=== PATIENT | female | born 1950 | race American Indian/Alaskan Native ===

== ENCOUNTER 2017-06-24 12:19 | Emergency (ER) | payer MEDICARE, MEDICAID ==
[2017-06-24 12:36] VITALS: BP 154/85
--- NOTE | 2017-06-24 14:29 | EDM.PDOC ---
ED HPI GENERAL MEDICAL PROBLEM - General Chief Complaint: Back Pain or Injury Stated Complaint: FELL, HURT RIBS ON LEFT SIDE Time Seen by Provider: 06/24/17 12:52 Source of Information: Reports: Patient, RN, RN Notes Reviewed History Limitations: Reports: No Limitations - History of Present Illness INITIAL COMMENTS - FREE TEXT/NARRATIVE: Patient presented to the ER with complaint of falling this a.m. She tripped on a rug and fell against an arm chair. She hit her head. No loss of consciousness. Pain is sharp 10. Left Back Pain Score (Numeric/FACES): 9 - Related Data Allergies Allergy/AdvReac Type Severity Reaction Status Date / Time No Known Allergies Allergy Verified 04/22/16 23:05 Home Meds: Home Meds Albuterol [Proventil HFA] 2 puff INH Q4H PRN 09/08/13 [History] Levothyroxine [Synthroid] 50 mcg PO ACBRK 09/08/13 [History] Lisinopril [Prinivil] 40 mg PO DAILY 09/08/13 [History] Verapamil [Covera-HS] 240 mg PO BEDTIME 09/08/13 [History] metFORMIN [metFORMIN XR] 1,000 mg PO BIDM PRN 09/08/13 [History] Aspirin [Low Dose Aspirin EC] 1 tab PO DAILY 03/31/14 [History] Calcium Carbonate/Vitamin D3 [Calcium 500 + Vit D 200 Tablet] 1 tab PO DAILY 09/08 [History] Diclofenac Sodium [Voltaren 1% Gel] 1 squirt TRDERM BEDTIME 03/31/14 [History] Formoterol/Mometasone [Dulera 100 MCG/5 MCG] 2 puff INH BID 03/31/14 [History] Multivit-Mins No.5/Folic Acid [Eldercaps] 1 tab PO DAILY 03/31/14 [History] traMADol [Ultram] 1 tab PO Q6H 04/15/14 [History] Past Medical History - Past Health History Medical/Surgical History: Denies Medical/Surgical History Cardiovascular History: Reports: High Cholesterol, Hypertension Respiratory History: Reports: Asthma Gastrointestinal History: Reports: GERD Genitourinary History: Reports: None 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: , Other (See Below) Other OB/BYN History: tubal Musculoskeletal History: Reports: Arthritis Neurological History: Reports: None Psychiatric History: Reports: None Endocrine/Metabolic History: Reports: Diabetes, Type II, Hypothyroidism Hematologic History: Reports: None Immunologic History: Reports: None Oncologic (Cancer) History: Reports: None Dermatologic History: Reports: None - Infectious Disease History Infectious Disease History: Reports: Mumps - Past Surgical History Head Surgeries/Procedures: Reports: None HEENT Surgical History: Reports: Tonsillectomy Female Surgical History: Reports: Tubal Ligation Musculoskeletal Surgical History: Reports: Knee Replacement Social & Family History - Family History Family Medical History: Noncontributory - Tobacco Use Smoking Status *Q: Never Smoker Second Hand Smoke Exposure: Yes - Caffeine Use Caffeine Use: Reports: Coffee, Tea - Alcohol Use Days Per Week of Alcohol Use: 0 - Recreational Drug Use Recreational Drug Use: No Drug Use in Last 12 Months: No ED ROS GENERAL - Review of Systems Review Of Systems: ROS reveals no pertinent complaints other than HPI. ED EXAM, GENERAL - Physical Exam Exam: See Below Exam Limited By: No Limitations General Appearance: Alert, WD/WN, No Apparent Distress Eye Exam: Bilateral Eye: Normal Inspection Ears: Normal External Exam, Normal Canal, Hearing Grossly Normal, Normal TMs Nose: Normal Inspection, Normal Mucosa, No Blood Throat/Mouth: Normal Inspection, Normal Lips, Normal Teeth, Normal Gums, Normal Oropharynx, Normal Voice, No Airway Compromise Head: Atraumatic, Normocephalic Neck: Normal Inspection, Supple, Non-Tender, Full Range of Motion Respiratory/Chest: Other (pain in left ribs.) Cardiovascular: Normal Peripheral Pulses, Regular Rate, Rhythm, No Edema, No Gallop, No JVD, No Murmur, No Rub GI/Abdominal: Normal Bowel Sounds, Soft, Non-Tender, No Organomegaly, No Distention, No Abnormal Bruit, No Mass (Female) Exam: Deferred Rectal (Female) Exam: Deferred Back Exam: Normal Inspection, Full Range of Motion, NT Extremities: Normal Inspection, Normal Range of Motion, Non-Tender, Normal Capillary Refill, No Pedal Edema Neurological: Alert, Oriented, CN II-XII Intact, Normal Cognition, Normal Gait, Normal Reflexes, No Motor/Sensory Deficits Psychiatric: Flat Affect Skin Exam: Warm, Dry, Intact, Normal Color, No Rash Lymphatic: No Adenopathy Course - Vital Signs Last Recorded V/S: Last Vital Signs Temp 99.4 F 06/24/17 12:35 Pulse 104 H 06/24/17 12:35 Resp 16 06/24/17 12:35 BP 154/85 H 06/24/17 12:35 Pulse Ox 95 06/24/17 12:35 - Radiology Interpretation Free Text/Narrative:: XR Left ribs and AP chest: No acute findings See rad report Departure - Departure Time of Disposition: 14:27 Disposition: Home, Self-Care 01 Condition: Fair Clinical Impression: Contusion Qualifiers: Encounter type: initial encounter Contusion area: thoracic wall Contusion of thoracic wall detail: unspecified area of thoracic wall Qualified Code(s): S20.20XA - Contusion of thorax, unspecified, initial encounter - Discharge Information Instructions: Muscle Strain, [id number], Back Pain, Adult, [id number] Referrals: PCP,None [Primary Care Provider] - Forms: ED Department Discharge Additional Instructions: Tylenol or ibuprofen for pain as directed Cough and deep breathe frequently Splint the area when coughing or moving Follow up with your primary care provider this week if no improvement.
== END 2017-06-24 14:45 | disposition home or self-care (01) ==
LOC: DL.ED 12:19
DX: S20.20XA Contusion of thorax, unspecified, initial encounter (principal); E78.00 Pure hypercholesterolemia, unspecified; I10 Essential (primary) hypertension; E11.9 Type 2 diabetes mellitus without complications; E03.9 Hypothyroidism, unspecified; Z79.82 Long term (current) use of aspirin; Z79.899 Other long term (current) drug therapy; Z79.84 Long term (current) use of oral hypoglycemic drugs
CPT/HCPCS: 71101-LT; 99283; 99284

== ENCOUNTER 2017-12-18 07:24 | Emergency (ER) | payer MEDICARE, MEDICAID ==
--- NOTE | 2017-12-18 07:33 | EDM.PDOC ---
ED HPI GENERAL MEDICAL PROBLEM - General Stated Complaint: AMBULANCE / NECK PAIN Time Seen by Provider: 12/18/17 07:30 Source of Information: Reports: Patient, EMS, EMS Notes Reviewed, RN, RN Notes Reviewed History Limitations: Reports: No Limitations - History of Present Illness INITIAL COMMENTS - FREE TEXT/NARRATIVE: Pt to ER per [facility] with c/o neck pain with radiation into the right shoulder. Patient states the pain began about 2 days ago and has progressively gotten worse until she states it is unbearable. Patient denies any injury or trauma. Pt denies any heavy lifting, repetitive movement out of the norm. Patient denies any further problems at this time. Denies numbness or tingling in the right arm. Pt states she has used ibuprofen which helped a bit, but pain returned. Onset: Gradual Onset Date: 12/16/17 Duration: Constant, Getting Worse Location: Reports: Neck Quality: Reports: Ache, Pressure, Sharp Severity: Moderate Improves with: Reports: None Worsens with: Reports: None Associated Symptoms: Reports: No Other Symptoms Right Shoulder Pain Score (Numeric/FACES): 8 - Related Data Allergies Allergy/AdvReac Type Severity Reaction Status Date / Time No Known Allergies Allergy Verified 04/22/16 23:05 Home Meds: Home Meds Albuterol [Proventil HFA] 2 puff INH Q4H PRN 09/08/13 [History] Levothyroxine [Synthroid] 50 mcg PO ACBRK 09/08/13 [History] Lisinopril [Prinivil] 40 mg PO DAILY 09/08/13 [History] Verapamil [Covera-HS] 240 mg PO BEDTIME 09/08/13 [History] metFORMIN [metFORMIN XR] 1,000 mg PO BIDM PRN 09/08/13 [History] Aspirin [Low Dose Aspirin EC] 1 tab PO DAILY 03/31/14 [History] Calcium Carbonate/Vitamin D3 [Calcium 500 + Vit D 200 Tablet] 1 tab PO DAILY 09/08 [History] Diclofenac Sodium [Voltaren 1% Gel] 1 squirt TRDERM BEDTIME 03/31/14 [History] Formoterol/Mometasone [Dulera 100 MCG/5 MCG] 2 puff INH BID 03/31/14 [History] Multivit-Mins No.5/Folic Acid [Eldercaps] 1 tab PO DAILY 03/31/14 [History] hydroCHLOROthiazide [Hydrochlorothiazide] 25 mg PO DAILY 12/18/17 [History] Past Medical History - Past Health History Medical/Surgical History: Denies Medical/Surgical History Cardiovascular History: Reports: High Cholesterol, Hypertension Respiratory History: Reports: Asthma Gastrointestinal History: Reports: GERD Genitourinary History: Reports: None 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: , 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 (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 Below) 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 Musculoskeletal History: Reports: Arthritis Neurological History: Reports: None Psychiatric History: Reports: None Endocrine/Metabolic History: Reports: Diabetes, Type II, Hypothyroidism Hematologic History: Reports: None Immunologic History: Reports: None Oncologic (Cancer) History: Reports: None Dermatologic History: Reports: None - Infectious Disease History Infectious Disease History: Reports: Mumps - Past Surgical History Head Surgeries/Procedures: Reports: None HEENT Surgical History: Reports: Tonsillectomy Female Surgical History: Reports: Tubal Ligation Musculoskeletal Surgical History: Reports: Knee Replacement Social & Family History - Family History Family Medical History: Noncontributory - Caffeine Use Caffeine Use: Reports: Coffee, Tea ED ROS GENERAL - Review of Systems Review Of Systems: ROS reveals no pertinent complaints other than HPI. ED EXAM, UPPER BACK/NECK PAIN - Physical Exam Exam: See Below Exam Limited By: No Limitations General Appearance: Alert, WD/WN, Mild Distress Eye Exam: Bilateral Eye: EOMI, Normal Inspection Ears Exam: Normal External Exam, Hearing Grossly Normal Nose Exam: Normal Inspection Throat/Mouth Exam: Normal Inspection, Normal Voice, No Airway Compromise Head Exam: Atraumatic, Normocephalic Neck Exam: Non-Tender, Full Range of Motion, Normal Alignment, Normal Inspection Nexus Criteria: No: Posterior, Midline Cervical Tenderness, Evidence of Intoxication, Altered Level of Consciousness, Focal Neurological Deficit, Painful Distraction Injuries Cardiovascular/Respiratory: Regular Rate, Rhythm, No M/R/G, Normal Peripheral Pulses, No JVD, Normal Breath Sounds, No Respiratory Distress GI/Abdominal: Normal Bowel Sounds, Soft, Non-Tender, No Organomegaly, No Distention, No Abnormal Bruit, No Mass, Pelvis Stable (Female) Exam: Deferred Rectal (Female) Exam: Deferred Back Exam: Normal Inspection, Full Range of Motion Extremities: Normal Inspection, Normal Range of Motion, Non-Tender, No Pedal Edema, Normal Capillary Refill Neurologic: No Motor/Sensory Deficits, Alert, Normal Mood/Affect, Oriented x 3 Psychiatric: Normal Affect, Normal Mood Skin Exam: Normal Color, Warm/Dry Lymphatic: No Adenopathy Course - Vital Signs Last Recorded V/S: Last Vital Signs Temp 98.2 F 12/18/17 07:36 Pulse 68 12/18/17 07:36 Resp 16 12/18/17 07:36 BP 144/69 H 12/18/17 07:36 Pulse Ox 98 12/18/17 07:36 - Orders/Labs/Meds Orders: Active Orders 24 hr Category Date Time Status Orphenadrine [Norflex] Med 12/18/17 09:00 Active 60 mg IM Q12H Medication Orders Orphenadrine Citrate (Norflex) 60 mg IM Q12H ANTOINETTE Last Admin: 12/18/17 09:21 Dose: 60 mg Meds: Medications Generic Name Dose Route Start Last Admin Trade Name Freq PRN Reason Stop Dose Admin Orphenadrine Citrate 60 mg 12/18/17 09:00 12/18/17 09:21 Norflex IM 60 mg Q12H ANTOINETTE Administration - Radiology Interpretation Free Text/Narrative:: Cervical spine xray: Osteopenia. Hypertrophic spondylosis C5-6. No fracture or dislocation cervical spine. Right shoulder xray: Old traumatic changes right A/C joint. No acute fracture or dislocation right shoulder. See rad report Departure - Departure Time of Disposition: 09:27 Disposition: Home, Self-Care 01 Condition: Fair Clinical Impression: Neck muscle strain Qualifiers: Encounter type: initial encounter Qualified Code(s): S16.1XXA - Strain of muscle, fascia and tendon at neck level, initial encounter - Discharge Information *PRESCRIPTION DRUG MONITORING PROGRAM REVIEWED*: No *COPY OF PRESCRIPTION DRUG MONITORING REPORT IN PATIENT KIARA: No Instructions: Shoulder Pain, [id number], Muscle Strain, [id number], Musculoskeletal Pain, Cervical Sprain, [id number] Referrals: Jesus Manuel Juárez [Primary Care Provider] - Forms: ED Department Discharge Additional Instructions: RX: Norflex (DO NOT DRIVE WHILE TAKING MEDICATION) Continue taking ibuprofen 600-800mg every 8 hours around the clock for a week. Take with food to avoid stomach upset. Follow up with your primary care facility for Physical Therapy referral. May ice and heat the area as tolerated - My Orders Last 24 Hours: My Active Orders 12/18/17 09:00 Orphenadrine [Norflex] 60 mg IM Q12H - Assessment/Plan Last 24 Hours: My Active Orders 12/18/17 09:00 Orphenadrine [Norflex] 60 mg IM Q12H
[2017-12-18 07:37] VITALS: BP 144/69
--- NOTE | 2017-12-18 08:23 | CR ---
Clinical history: 67-year-old female with neck pain (no injury). Interpretation: AP lateral cervical spine exam confirm the presence of reactive atlantoaxial sclerosi s and hypertrophic marginal/uncinate spondylosis C5-6 level. Bone mineral density consistent with age. No sign of congenital abnormality, pathologic skeletal lesion, prevertebral soft tissue swelling, cer vical fracture, spondylolisthesis or abnormal intervertebral disc space narrowing. No cervical rib anomalies. Lung apices are clear. CONCLUSION: Osteopenia. Hypertrophic spondylosis C5-6. No fracture or dislocation cervical spine.
--- NOTE | 2017-12-18 08:25 | CR ---
Clinical history: 67-year-old female with neck and right shoulder pain. No injury ("C5-6 spondylosis" ). Interpretation: 2 views right shoulder reveal mild soft tissue swelling and some marginal spur over t he dorsal aspect of the acromioclavicular joint. Normal spacing between the acromion process scapula the head of the humerus and no juxta-articular ro tator cuff tendon calcification. Ipsilateral right lung apex clear. Subtle reactive sclerosis glenohumeral joint but no sign of pathologic skeletal lesion, right shoulde r fracture, A/C separation or glenohumeral dislocation. CONCLUSION: Old traumatic changes right A/C joint. No acute fracture or dislocation right shoulder.
== END 2017-12-18 09:38 | disposition home or self-care (01) ==
LOC: DL.ED 07:24
DX: S16.1XXA Strain of muscle, fascia and tendon at neck level, initial encounter (principal); E78.00 Pure hypercholesterolemia, unspecified; I10 Essential (primary) hypertension; J45.909 Unspecified asthma, uncomplicated; E11.9 Type 2 diabetes mellitus without complications; E03.9 Hypothyroidism, unspecified; Z79.899 Other long term (current) drug therapy; Z79.82 Long term (current) use of aspirin; Z79.84 Long term (current) use of oral hypoglycemic drugs; X58.XXXA Exposure to other specified factors, initial encounter
CPT/HCPCS: 72040; 73030; 96372; 99283; J2360

== ENCOUNTER 2018-02-07 21:21 | Emergency (ER) | payer MEDICARE, MEDICAID ==
[2018-02-07 21:37] VITALS: BP 127/57
--- NOTE | 2018-02-07 21:43 | EDM.PDOC ---
ED HPI GENERAL MEDICAL PROBLEM - General Chief Complaint: General Stated Complaint: UNKNOWN Time Seen by Provider: 02/07/18 21:37 Source of Information: Reports: Patient History Limitations: Reports: No Limitations - History of Present Illness INITIAL COMMENTS - FREE TEXT/NARRATIVE: states tripped fell onto both knees and had left arm across her chest and fell onto it too and now has chest pains and it hurts when pushes onto it. 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, EKG, Nitroglycerin Mid-Sternal Chest Pain Score (Numeric/FACES): 8 Bilateral Knee Pain Score (Numeric/FACES): 6 - Related Data Allergies Allergy/AdvReac Type Severity Reaction Status Date / Time No Known Allergies Allergy Verified 04/22/16 23:05 Home Meds: Home Meds Albuterol [Proventil HFA] 2 puff INH Q4H PRN 09/08/13 [History] Levothyroxine [Synthroid] 50 mcg PO ACBRK 09/08/13 [History] Lisinopril [Prinivil] 40 mg PO DAILY 09/08/13 [History] Verapamil [Covera-HS] 240 mg PO BEDTIME 09/08/13 [History] metFORMIN [metFORMIN XR] 1,000 mg PO BIDM PRN 09/08/13 [History] Aspirin [Low Dose Aspirin EC] 1 tab PO DAILY 03/31/14 [History] Calcium Carbonate/Vitamin D3 [Calcium 500 + Vit D 200 Tablet] 1 tab PO DAILY 09/08 [History] Diclofenac Sodium [Voltaren 1% Gel] 1 squirt TRDERM BEDTIME 03/31/14 [History] Formoterol/Mometasone [Dulera 100 MCG/5 MCG] 2 puff INH BID 03/31/14 [History] Multivit-Mins No.5/Folic Acid [Eldercaps] 1 tab PO DAILY 03/31/14 [History] hydroCHLOROthiazide [Hydrochlorothiazide] 25 mg PO DAILY 12/18/17 [History] Past Medical History - Past Health History Medical/Surgical History: Denies Medical/Surgical History HEENT History: Reports: None Cardiovascular History: Reports: High Cholesterol, Hypertension Respiratory History: Reports: Asthma Gastrointestinal History: Reports: GERD Genitourinary History: Reports: None 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 Musculoskeletal History: Reports: Arthritis Neurological History: Reports: None Psychiatric History: Reports: None Endocrine/Metabolic History: Reports: Diabetes, Type II, Hypothyroidism Hematologic History: Reports: None Immunologic History: Reports: None Oncologic (Cancer) History: Reports: None Dermatologic History: Reports: None - Infectious Disease History Infectious Disease History: Reports: Mumps - Past Surgical History Head Surgeries/Procedures: Reports: None HEENT Surgical History: Reports: Tonsillectomy Female Surgical History: Reports: Tubal Ligation Musculoskeletal Surgical History: Reports: Knee Replacement Social & Family History - Family History Family Medical History: Noncontributory - Tobacco Use Smoking Status *Q: Never Smoker - Caffeine Use Caffeine Use: Reports: Coffee - Recreational Drug Use Recreational Drug Use: No ED ROS GENERAL - Review of Systems Review Of Systems: ROS reveals no pertinent complaints other than HPI. ED EXAM, GENERAL - Physical Exam Exam: See Below Exam Limited By: No Limitations General Appearance: Alert, WD/WN, Mild Distress, Other (discomfort) Ears: Hearing Grossly Normal Throat/Mouth: Normal Voice, No Airway Compromise Head: Atraumatic Neck: Non-Tender, Full Range of Motion Respiratory/Chest: No Respiratory Distress, Other (mid sternal tender ) Cardiovascular: Regular Rate, Rhythm GI/Abdominal: Soft, Non-Tender Extremities: Other (bilateral knees with h/o replacemetns no gross D/D, NV wnl, gait limited to pain) Neurological: Alert, Oriented, Normal Cognition, No Motor/Sensory Deficits Psychiatric: Flat Affect Skin Exam: Warm, Dry, Normal Color Lymphatic: No Adenopathy Course - Vital Signs Last Recorded V/S: Last Vital Signs Temp 36.2 C 02/07/18 21:36 Pulse 62 02/07/18 21:36 Resp 19 02/07/18 21:36 BP 127/57 L 02/07/18 21:36 Pulse Ox 98 02/07/18 21:36 - Orders/Labs/Meds Labs: Laboratory Tests 02/07/18 02/07/18 Range/Units 21:43 21:43 WBC 6.2 (5.0-10.0) 10^3/uL RBC 3.79 L (4.2-5.4) 10^6/uL Hgb 10.7 L (12.0-16.0) g/dL Hct 34.0 L (37.0-47.0) % MCV 89.7 D (80-100) fL MCH 28.2 (27.0-34.0) pg MCHC 31.5 L (33.0-35.0) g/dL Plt Count 227 (150-450) 10^3/uL Neut % (Auto) 57.0 (42.2-75.2) % Lymph % (Auto) 34.5 (20.5-50.1) % [place] % (Auto) 6.9 (2-8) % Eos % (Auto) 1.3 (1.0-3.0) % Baso % (Auto) 0.3 (0.0-1.0) % Sodium 140 (135-145) mmol/L Potassium 4.0 (3.6-5.0) mmol/L Chloride 106 (101-111) mmol/L Carbon Dioxide 26.0 (21.0-31.0) mmol/L Anion Gap 12.0 BUN 19 H (7-18) mg/dL Creatinine 0.8 (0.6-1.3) mg/dL Est Cr Clr Drug Dosing 66.36 mL/min Estimated GFR (MDRD) > 60 BUN/Creatinine Ratio 23.75 Glucose 117 H (74-105) mg/dL Calcium 8.8 (8.4-10.2) mg/dl Total Bilirubin 0.6 (0.2-1.0) mg/dL AST 18 (10-42) IU/L ALT 10 (10-60) IU/L Alkaline Phosphatase 75 (42-121) IU/L Troponin I < 0.02 (0.00-0.02) ng/ml Total Protein 6.7 (6.7-8.2) g/dl Albumin 3.6 (3.2-5.5) g/dl Globulin 3.1 Albumin/Globulin Ratio 1.16 Meds: Medications Discontinued Medications Generic Name Dose Route Start Last Admin Trade Name Freq PRN Reason Stop Dose Admin Hydrocodone Bitart/Acetaminophen 1 tab 02/07/18 22:31 02/07/18 22:41 [place] 325-10 Mg PO 02/07/18 22:32 1 tab ONETIME ONE Administration - Re-Assessments/Exams Free Text/Narrative Re-Assessment/Exam: 02/07/18 22:32 results discussed with pt. Departure - Departure Time of Disposition: 22:45 Disposition: Home, Self-Care 01 Condition: Fair Clinical Impression: Contusion, knee Qualifiers: Encounter type: initial encounter Laterality: unspecified laterality Qualified Code(s): S80.00XA - Contusion of unspecified knee, initial encounter Contusion, chest wall Qualifiers: Encounter type: initial encounter Laterality: unspecified laterality Qualified Code(s): S20.219A - Contusion of unspecified front wall of thorax, initial encounter - Discharge Information Instructions: Contusion, [id number] Forms: ED Department Discharge Additional Instructions: 1) rest as much as possible 2) try ice or heat to sore areas 3) follow up at clinic or recheck as needed
[2018-02-07 22:09] LABS: CHLORIDE,CL 106 mmol/L (101-111); SODIUM,NA 140 mmol/L (135-145)
[2018-02-07] MEDS ORDERED: Acetaminophen/HYDROcodone 325-10 MG Tab PO ONE (22:31)
== END 2018-02-07 22:45 | disposition home or self-care (01) ==
LOC: DL.ED 21:21
DX: S80.01XA Contusion of right knee, initial encounter (principal); S80.02XA Contusion of left knee, initial encounter; S20.219A Contusion of unspecified front wall of thorax, initial encounter; E78.00 Pure hypercholesterolemia, unspecified; I10 Essential (primary) hypertension; J45.909 Unspecified asthma, uncomplicated; E11.9 Type 2 diabetes mellitus without complications; E03.9 Hypothyroidism, unspecified; Z79.899 Other long term (current) drug therapy; Z79.84 Long term (current) use of oral hypoglycemic drugs; W01.0XXA Fall on same level from slipping, tripping and stumbling without subsequent striking against object, initial encounter
CPT/HCPCS: 36415; 71045; 73560; 80053; 84484; 85025; 93005; 93010; 99285; A9270

== ENCOUNTER 2018-06-30 11:21 | Emergency (ER) | payer MEDICARE, MEDICAID ==
[2018-06-30 11:52] VITALS: BP 124/68
[2018-06-30] MEDS ORDERED: Sodium Chloride 0.9% 10 ML Syringe FLUSH PRN (12:53)
[2018-06-30 13:37] LABS: CHLORIDE,CL 106 mmol/L (101-111); SODIUM,NA 136 mmol/L (135-145)
[2018-06-30] MEDS ORDERED: diphenhydrAMINE 50 MG/ML SDV IVPUSH ONE (13:39)
[2018-06-30] MEDS ORDERED: Vancomycin 1.5 GM in Sodium Chloride 0.9% 500 ML IV ONE (13:39)
[2018-06-30] MEDS ORDERED: Acetaminophen/HYDROcodone 325-10 MG Tab PO ONE (13:58)
--- NOTE | 2018-06-30 14:21 | EDM.PDOC ---
Scribed by Ofelia Dewitt 06/30/18 1310 for Jaxon Reynolds MD ED HPI GENERAL MEDICAL PROBLEM - General Chief Complaint: Lower Extremity Injury/Pain Stated Complaint: RT LEG IS SWOLLEN Time Seen by Provider: 06/30/18 12:05 Source of Information: Reports: Patient, RN, RN Notes Reviewed History Limitations: Reports: No Limitations - History of Present Illness INITIAL COMMENTS - FREE TEXT/NARRATIVE: Pt presents to ER from home by POV with c/o Rt lower leg swelling with increased warmth and redness that began 3 days ago, and has been worsening. She denies fever, chills, N/V, injury, or any other areas of rash or redness. Onset: Gradual Onset Date: 06/28/18 Duration: Day(s): (3), Constant, Getting Worse Location: Reports: Lower Extremity, Right Quality: Reports: Ache Severity: Moderate Improves with: Reports: None Worsens with: Reports: None Associated Symptoms: Reports: No Other Symptoms Right Leg Pain Score (Numeric/FACES): 7 - Related Data Allergies Allergy/AdvReac Type Severity Reaction Status Date / Time No Known Allergies Allergy Verified 06/30/18 11:52 Home Meds: Home Meds Albuterol [Proventil HFA] 2 puff INH Q4H PRN 09/08/13 [History] Levothyroxine [Synthroid] 50 mcg PO ACBRK 09/08/13 [History] Lisinopril [Prinivil] 40 mg PO DAILY 09/08/13 [History] Verapamil [Covera-HS] 240 mg PO BEDTIME 09/08/13 [History] metFORMIN [metFORMIN XR] 1,000 mg PO BIDM PRN 09/08/13 [History] Aspirin [Low Dose Aspirin EC] 1 tab PO DAILY 03/31/14 [History] Calcium Carbonate/Vitamin D3 [Calcium 500 + Vit D 200 Tablet] 1 tab PO DAILY 09/08 [History] Diclofenac Sodium [Voltaren 1% Gel] 1 squirt TRDERM BEDTIME 03/31/14 [History] Formoterol/Mometasone [Dulera 100 MCG/5 MCG] 2 puff INH BID 03/31/14 [History] Multivit-Mins No.5/Folic Acid [Eldercaps] 1 tab PO DAILY 03/31/14 [History] hydroCHLOROthiazide [Hydrochlorothiazide] 25 mg PO DAILY 12/18/17 [History] Past Medical History - Past Health History Medical/Surgical History: Denies Medical/Surgical History HEENT History: Reports: None Cardiovascular History: Reports: High Cholesterol, Hypertension Respiratory History: Reports: Asthma Gastrointestinal History: Reports: GERD Genitourinary History: Reports: None 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 PROJECT ENGINEER History: Reports: Other 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 PROJECT ENGINEER History: tubal Musculoskeletal History: Reports: Arthritis Neurological History: Reports: None Psychiatric History: Reports: None Endocrine/Metabolic History: Reports: Diabetes, Type II, Hypothyroidism Hematologic History: Reports: None Immunologic History: Reports: None Oncologic (Cancer) History: Reports: None Dermatologic History: Reports: None - Infectious Disease History Infectious Disease History: Reports: Mumps - Past Surgical History Head Surgeries/Procedures: Reports: None HEENT Surgical History: Reports: Tonsillectomy Female Surgical History: Reports: Tubal Ligation Musculoskeletal Surgical History: Reports: Knee Replacement, Other (See Below) Other Musculoskeletal Surgeries/Procedures:: right bunion and hammer toe surgery 05/31/18 Social & Family History - Family History Family Medical History: Noncontributory - Tobacco Use Smoking Status *Q: Never Smoker Second Hand Smoke Exposure: No - Caffeine Use Caffeine Use: Reports: Coffee, Tea - Recreational Drug Use Recreational Drug Use: No - Living Situation & Occupation Living situation: Reports: with Family Review of Systems - Review of Systems Review Of Systems: ROS reveals no pertinent complaints other than HPI. ED EXAM, GENERAL - Physical Exam Exam: See Below Exam Limited By: No Limitations General Appearance: Alert, WD/WN, No Apparent Distress Nose: Normal Inspection Throat/Mouth: Normal Inspection, Normal Lips, Normal Oropharynx, Normal Voice, No Airway Compromise Head: Atraumatic, Normocephalic Neck: Normal Inspection, Supple, Non-Tender, Full Range of Motion Respiratory/Chest: No Respiratory Distress, Lungs Clear, Normal Breath Sounds, No Accessory Muscle Use, Chest Non-Tender Cardiovascular: Normal Peripheral Pulses, Regular Rate, Rhythm, No Edema, No Gallop, No JVD, No Murmur, No Rub GI/Abdominal: Normal Bowel Sounds, Soft, Non-Tender, No Distention Back Exam: Normal Inspection Extremities: Normal Range of Motion, No Pedal Edema, Normal Capillary Refill, Increased Warmth (with erythema and tenderness from ankle to knee of Rt lower extremity), Other (Proximal Rt 1st toe with a 1cm oval unstagable ulcer w/small amt. of purulent drainage overlying a surgical scar on the dorsal surface.). No : Jake's Sign Neurological: Alert, Oriented, CN II-XII Intact, Normal Cognition, Normal Reflexes, No Motor/Sensory Deficits Psychiatric: Normal Affect, Normal Mood Skin Exam: Warm, Dry Course - Vital Signs Last Recorded V/S: Last Vital Signs Temp 37.7 C 06/30/18 11:47 Pulse 87 06/30/18 11:47 Resp 18 06/30/18 11:47 BP 124/68 06/30/18 11:47 Pulse Ox 98 06/30/18 11:47 - Orders/Labs/Meds Orders: Active Orders 24 hr Category Date Time Status Peripheral IV Care [RC] . DIRECTED Care 06/30/18 12:53 Active CULTURE BLOOD [BC] Stat Lab 06/30/18 13:02 Received CULTURE BLOOD [BC] Stat Lab 06/30/18 13:07 Received Sodium Chloride 0.9% [Saline Flush] Med 06/30/18 12:53 Active 10 ml FLUSH ASDIRECTED PRN Vancomycin 1.5 gm Med 06/30/18 13:39 Active Sodium Chloride 0.9% [Normal Saline] 500 ml IV ONETIME Blood Culture x2 Reflex Set [OM.PC] Stat Oth 06/30/18 12:52 Ordered Peripheral IV Insertion Adult [OM.PC] Stat Oth 06/30/18 12:52 Ordered Medication Orders Vancomycin HCl 1.5 gm/ Sodium (Chloride) 500 mls @ 334 mls/hr IV ONETIME ONE Stop: 06/30/18 15:08 Last Admin: 06/30/18 14:13 Dose: 334 mls/hr Sodium Chloride (Saline Flush) 10 ml FLUSH ASDIRECTED PRN PRN Reason: Keep Vein Open Last Admin: 06/30/18 13:08 Dose: 10 ml Labs: Laboratory Tests 06/30/18 06/30/18 06/30/18 Range/Units 13:07 13:07 13:07 WBC 7.9 (5.0-10.0) 10^3/uL RBC 3.92 L (4.2-5.4) 10^6/uL Hgb 10.8 L (12.0-16.0) g/dL Hct 33.6 L (37.0-47.0) % MCV 85.7 D (80-100) fL MCH 27.6 (27.0-34.0) pg MCHC 32.1 L (33.0-35.0) g/dL Plt Count 254 (150-450) 10^3/uL Neut % (Auto) 70.7 (42.2-75.2) % Lymph % (Auto) 17.7 L (20.5-50.1) % [place] % (Auto) 8.3 H (2-8) % Eos % (Auto) 3.2 H (1.0-3.0) % Baso % (Auto) 0.1 (0.0-1.0) % Sodium 136 (135-145) mmol/L Potassium 4.0 (3.6-5.0) mmol/L Chloride 106 (101-111) mmol/L Carbon Dioxide 21.0 (21.0-31.0) mmol/L Anion Gap 13.0 BUN 17 (7-18) mg/dL Creatinine 0.7 (0.6-1.3) mg/dL Est Cr Clr Drug Dosing 73.01 mL/min Estimated GFR (MDRD) > 60 BUN/Creatinine Ratio 24.28 Glucose 110 H (74-105) mg/dL Lactic Acid 1.0 (0.5-2.2) mmol/L Calcium 8.9 (8.4-10.2) mg/dl Total Bilirubin 0.8 (0.2-1.0) mg/dL AST 18 (10-42) IU/L ALT 11 (10-60) IU/L Alkaline Phosphatase 80 (42-121) IU/L C-Reactive Protein (0.0-1.3) mg/dL Total Protein 7.4 (6.7-8.2) g/dl Albumin 3.4 (3.2-5.5) g/dl Globulin 4.0 Albumin/Globulin Ratio 0.85 06/30/18 Range/Units 13:07 WBC (5.0-10.0) 10^3/uL RBC (4.2-5.4) 10^6/uL Hgb (12.0-16.0) g/dL Hct (37.0-47.0) % MCV (80-100) fL MCH (27.0-34.0) pg MCHC (33.0-35.0) g/dL Plt Count (150-450) 10^3/uL Neut % (Auto) (42.2-75.2) % Lymph % (Auto) (20.5-50.1) % [place] % (Auto) (2-8) % Eos % (Auto) (1.0-3.0) % Baso % (Auto) (0.0-1.0) % Sodium (135-145) mmol/L Potassium (3.6-5.0) mmol/L Chloride (101-111) mmol/L Carbon Dioxide (21.0-31.0) mmol/L Anion Gap BUN (7-18) mg/dL Creatinine (0.6-1.3) mg/dL Est Cr Clr Drug Dosing mL/min Estimated GFR (MDRD) BUN/Creatinine Ratio Glucose (74-105) mg/dL Lactic Acid (0.5-2.2) mmol/L Calcium (8.4-10.2) mg/dl Total Bilirubin (0.2-1.0) mg/dL AST (10-42) IU/L ALT (10-60) IU/L Alkaline Phosphatase (42-121) IU/L C-Reactive Protein 13.5 H (0.0-1.3) mg/dL Total Protein (6.7-8.2) g/dl Albumin (3.2-5.5) g/dl Globulin Albumin/Globulin Ratio Meds: Medications Generic Name Dose Route Start Last Admin Trade Name Freq PRN Reason Stop Dose Admin Vancomycin HCl 1.5 gm/ Sodium 500 mls @ 334 mls/hr 06/30/18 13:39 06/30/18 14 :13 Chloride IV 06/30/18 15:08 334 mls/hr ONETIME ONE Administration Sodium Chloride 10 ml 06/30/18 12:53 06/30/18 13:08 Saline Flush FLUSH 10 ml ASDIRECTED PRN Administration Keep Vein Open Discontinued Medications Generic Name Dose Route Start Last Admin Trade Name Freq PRN Reason Stop Dose Admin Hydrocodone Bitart/Acetaminophen 1 tab 06/30/18 13:58 06/30/18 14:07 [place] 325-10 Mg PO 06/30/18 13:59 1 tab ONETIME ONE Administration Diphenhydramine HCl 25 mg 06/30/18 13:39 06/30/18 14:08 Benadryl IVPUSH 06/30/18 13:40 25 mg ONETIME ONE Administration Departure - Departure Time of Disposition: 15:20 Disposition: Home, Self-Care 01 Condition: Good Clinical Impression: Cellulitis of right lower extremity 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 Page as scheduled. Return to ER if worse at any time. - My Orders Last 24 Hours: My Active Orders 06/30/18 12:52 Blood Culture x2 Reflex Set [OM.PC] Stat Peripheral IV Insertion Adult [OM.PC] Stat 06/30/18 12:53 Peripheral IV Care [RC] . DIRECTED Sodium Chloride 0.9% [Saline Flush] 10 ml FLUSH ASDIRECTED PRN 06/30/18 13:02 CULTURE BLOOD [BC] Stat 06/30/18 13:07 CULTURE BLOOD [BC] Stat 06/30/18 13:39 Vancomycin 1.5 gm Sodium Chloride 0.9% [Normal Saline] 500 ml IV ONETIME - Assessment/Plan Last 24 Hours: My Active Orders 06/30/18 12:52 Blood Culture x2 Reflex Set [OM.PC] Stat Peripheral IV Insertion Adult [OM.PC] Stat 06/30/18 12:53 Peripheral IV Care [RC] . DIRECTED Sodium Chloride 0.9% [Saline Flush] 10 ml FLUSH ASDIRECTED PRN 06/30/18 13:02 CULTURE BLOOD [BC] Stat 06/30/18 13:07 CULTURE BLOOD [BC] Stat 06/30/18 13:39 Vancomycin 1.5 gm Sodium Chloride 0.9% [Normal Saline] 500 ml IV ONETIME I have read and agree with the documentation that has been completed regarding this visit. By signing this record, I attest that the documentation was completed in my physical presence and is an accurate record of the encounter.
== END 2018-06-30 15:58 | disposition home or self-care (01) ==
LOC: DL.ED 11:21
DX: L97.519 Non-pressure chronic ulcer of other part of right foot with unspecified severity (principal); L03.031 Cellulitis of right toe; I10 Essential (primary) hypertension; E11.9 Type 2 diabetes mellitus without complications; Z79.899 Other long term (current) drug therapy
CPT/HCPCS: 36415; 80053; 83605; 85025; 86140; 87040; 87070; 96365; 96366; 96375; 99283; A9270; J1200; J3370; J7040; 87077; 87186

== ENCOUNTER 2018-10-06 09:31 | Emergency (ER) | payer MEDICARE, MEDICAID ==
[2018-10-06] MEDS ORDERED: Sodium Chloride 0.9% 1,000 ML IV ONE (10:21)
[2018-10-06] MEDS ORDERED: Ondansetron 4 MG/2 ML SDV IV ONE (10:21)
[2018-10-06] MEDS ORDERED: HYDROmorphone 1 MG/ML Syringe IVPUSH ONE (10:21)
[2018-10-06] MEDS ORDERED: Sodium Chloride 0.9% 10 ML Syringe FLUSH PRN (10:21)
[2018-10-06 11:06] LABS: ANION GAP 14.8; CHLORIDE,CL 107 mmol/L (101-111); SODIUM,NA 140 mmol/L (135-145)
[2018-10-06] MEDS ORDERED: Iopamidol 612 MG/ML 100 ML Bottle IVPUSH ONE (11:15)
[2018-10-06] MEDS ORDERED: Barium Sulfate w/v 2.1% Oral Susp 450 ML Bottle PO ONE (12:37)
--- NOTE | 2018-10-06 14:06 | EDM.PDOC ---
"Scribed by Ofelia Dewitt 10/06/18 1043 for Leonel Reynolds MD ED HPI GENERAL MEDICAL PROBLEM - General Chief Complaint: Abdominal Pain Stated Complaint: HERNIA Time Seen by Provider: 10/06/18 10:08 Source of Information: Reports: Patient, RN, RN Notes Reviewed History Limitations: Reports: No Limitations - History of Present Illness INITIAL COMMENTS - FREE TEXT/NARRATIVE: Pt presents to the ER from home by POV with c/o abdominal pain and nausea related to her umbilical hernia. She has had the hernia since 1989 it is evaluated at her clinic once or twice a year. She has never had a CT for evaluation of the hernia, but was advised to go to the ER and have one if it becomes painful. At about midnight it woke her up due to pain and has gotten worse of the last few hours. Pt rates the pain as 10/10. Nothing alleviates the pain. The pain is aggravated by movement, such as bumps in the car. Duration: Constant, Getting Worse Location: Reports: Abdomen Quality: Reports: Ache, Pressure, Sharp Severity: Severe Improves with: Reports: None Worsens with: Reports: Movement Associated Symptoms: Reports: No Other Symptoms Middle Abdomen Pain Score (Numeric/FACES): 10 - Related Data Allergies Allergy/AdvReac Type Severity Reaction Status Date / Time No Known Allergies Allergy Verified 06/30/18 11:52 Home Meds: Home Meds Albuterol [Proventil HFA] 2 puff INH Q4H PRN 09/08/13 [History] Levothyroxine [Synthroid] 50 mcg PO ACBRK 09/08/13 [History] Lisinopril [Prinivil] 40 mg PO DAILY 09/08/13 [History] Verapamil [Covera-HS] 240 mg PO BEDTIME 09/08/13 [History] metFORMIN [metFORMIN XR] 1,000 mg PO BIDM PRN 09/08/13 [History] Aspirin [Low Dose Aspirin EC] 1 tab PO DAILY 03/31/14 [History] Calcium Carbonate/Vitamin D3 [Calcium 500 + Vit D 200 Tablet] 1 tab PO DAILY 09/08 [History] Diclofenac Sodium [Voltaren 1% Gel] 1 squirt TRDERM BEDTIME 03/31/14 [History] Formoterol/Mometasone [Dulera 100 MCG/5 MCG] 2 puff INH BID 03/31/14 [History] Multivit-Mins No.5/Folic Acid [Eldercaps] 1 tab PO DAILY 03/31/14 [History] hydroCHLOROthiazide [Hydrochlorothiazide] 25 mg PO DAILY 12/18/17 [History] Past Medical History - Past Health History Medical/Surgical History: Denies Medical/Surgical History HEENT History: Reports: None Cardiovascular History: Reports: High Cholesterol, Hypertension Respiratory History: Reports: Asthma Gastrointestinal History: Reports: GERD, Other (See Below) (Periumbilical hernia ) Genitourinary History: Reports: None RN SURGICAL History: Reports: Other RN SURGICAL History: tubal Musculoskeletal History: Reports: Arthritis Neurological History: Reports: None Psychiatric History: Reports: None Endocrine/Metabolic History: Reports: Diabetes, Type II, Hypothyroidism Hematologic History: Reports: None Immunologic History: Reports: None Oncologic (Cancer) History: Reports: None Dermatologic History: Reports: None - Infectious Disease History Infectious Disease History: Reports: Mumps - Past Surgical History Head Surgeries/Procedures: Reports: None HEENT Surgical History: Reports: Tonsillectomy Female Surgical History: Reports: Tubal Ligation Musculoskeletal Surgical History: Reports: Knee Replacement, Other (See Below) Other Musculoskeletal Surgeries/Procedures:: right bunion and hammer toe surgery 05/31/18 Social & Family History - Family History Family Medical History: Noncontributory - Caffeine Use Caffeine Use: Reports: Coffee, Tea - Living Situation & Occupation Living situation: Reports: with Family ED ROS GENERAL - Review of Systems Review Of Systems: ROS reveals no pertinent complaints other than HPI. ED EXAM, GI/ABD - Physical Exam Exam: See Below Exam Limited By: No Limitations General Appearance: Alert, No Apparent Distress, Obese, Other (Uncomfortable appearing) Throat/Mouth: Normal Inspection Head: Atraumatic, Normocephalic Neck: Normal Inspection Respiratory/Chest: No Respiratory Distress, Lungs Clear, Normal Breath Sounds, No Accessory Muscle Use, Chest Non-Tender Cardiovascular: Regular Rate, Rhythm GI/Abdominal Exam: Normal Bowel Sounds, Soft, No Distention, No Abnormal Bruit, Tender (around periumbilical hernia), Hernia (large firm periumbilical hernia. I was able to partially reduce the hernia, but the pt could not tolerate the pain. ). No: Guarding, Rigid, Rebound (Female) Exam: Deferred Rectal (Female) Exam: Deferred Back Exam: Normal Inspection Extremities: Normal Inspection Neurological: Alert, Oriented, Normal Cognition, No Motor/Sensory Deficits Psychiatric: Normal Mood Skin Exam: Warm, Dry, Intact, Normal Color, No Rash Course - Vital Signs Last Recorded V/S: Last Vital Signs Temp 36.8 C 10/06/18 09:45 Pulse 86 10/06/18 09:45 Resp 16 10/06/18 09:45 BP 154/81 H 10/06/18 09:45 Pulse Ox 97 10/06/18 09:45 - Orders/Labs/Meds Orders: Active Orders 24 hr Category Date Time Status Peripheral IV Care [RC] . DIRECTED Care 10/06/18 10:21 Active Sodium Chloride 0.9% [Saline Flush] Med 10/06/18 10:21 Active 10 ml FLUSH ASDIRECTED PRN Peripheral IV Insertion Adult [OM.PC] Stat Oth 10/06/18 10:21 Ordered Medication Orders Sodium Chloride (Saline Flush) 10 ml FLUSH ASDIRECTED PRN PRN Reason: Keep Vein Open Last Admin: 10/06/18 10:45 Dose: 10 ml Labs: Laboratory Tests 10/06/18 10/06/18 10/06/18 Range/Units 10:35 10:35 10:35 WBC 6.4 (5.0-10.0) 10^3/uL RBC 4.09 L (4.2-5.4) 10^6/uL Hgb 11.0 L (12.0-16.0) g/dL Hct 34.6 L (37.0-47.0) % MCV 84.6 (80-100) fL MCH 26.9 L (27.0-34.0) pg MCHC 31.8 L (33.0-35.0) g/dL Plt Count 255 (150-450) 10^3/uL Neut % (Auto) 57.5 (42.2-75.2) % Lymph % (Auto) 34.7 (20.5-50.1) % [place] % (Auto) 5.9 (2-8) % Eos % (Auto) 1.6 (1.0-3.0) % Baso % (Auto) 0.3 (0.0-1.0) % Sodium 140 (135-145) mmol/L Potassium 3.8 (3.6-5.0) mmol/L Chloride 107 (101-111) mmol/L Carbon Dioxide 22.0 (21.0-31.0) mmol/L Anion Gap 14.8 BUN 16 (7-18) mg/dL Creatinine 0.7 (0.6-1.3) mg/dL Est Cr Clr Drug Dosing TNP Estimated GFR (MDRD) > 60 BUN/Creatinine Ratio 22.85 Glucose 115 H (74-105) mg/dL Lactic Acid 1.9 (0.5-2.2) mmol/L Calcium 8.9 (8.4-10.2) mg/dl Total Bilirubin 0.7 (0.2-1.0) mg/dL AST 22 (10-42) IU/L ALT 12 (10-60) IU/L Alkaline Phosphatase 79 (42-121) IU/L C-Reactive Protein (0.0-1.3) mg/dL Total Protein 6.8 (6.7-8.2) g/dl Albumin 3.6 (3.2-5.5) g/dl Globulin 3.2 Albumin/Globulin Ratio 1.13 /05/15 Range/Units 10:35 WBC (5.0-10.0) 10^3/uL RBC (4.2-5.4) 10^6/uL Hgb (12.0-16.0) g/dL Hct (37.0-47.0) % MCV (80-100) fL MCH (27.0-34.0) pg MCHC (33.0-35.0) g/dL Plt Count (150-450) 10^3/uL Neut % (Auto) (42.2-75.2) % Lymph % (Auto) (20.5-50.1) % [place] % (Auto) (2-8) % Eos % (Auto) (1.0-3.0) % Baso % (Auto) (0.0-1.0) % Sodium (135-145) mmol/L Potassium (3.6-5.0) mmol/L Chloride (101-111) mmol/L Carbon Dioxide (21.0-31.0) mmol/L Anion Gap BUN (7-18) mg/dL Creatinine (0.6-1.3) mg/dL Est Cr Clr Drug Dosing Estimated GFR (MDRD) BUN/Creatinine Ratio Glucose (74-105) mg/dL Lactic Acid (0.5-2.2) mmol/L Calcium (8.4-10.2) mg/dl Total Bilirubin (0.2-1.0) mg/dL AST (10-42) IU/L ALT (10-60) IU/L Alkaline Phosphatase (42-121) IU/L C-Reactive Protein 0.5 (0.0-1.3) mg/dL Total Protein (6.7-8.2) g/dl Albumin (3.2-5.5) g/dl Globulin Albumin/Globulin Ratio Meds: Medications Generic Name Dose Route Start Last Admin Trade Name Freq PRN Reason Stop Dose Admin Sodium Chloride 10 ml 10/06/18 10:21 10/06/18 10:45 Saline Flush FLUSH 10 ml ASDIRECTED PRN Administration Keep Vein Open Discontinued Medications Generic Name Dose Route Start Last Admin Trade Name Freq PRN Reason Stop Dose Admin Barium Sulfate 900 ml 10/06/18 12:37 10/06/18 11:30 Readi-Cat 2 PO 10/06/18 12:38 900 ml ONETIME ONE Administration Hydromorphone HCl 1 mg 10/06/18 10:21 10/06/18 10:43 Dilaudid IVPUSH 10/06/18 10:22 1 mg ONETIME ONE Administration Sodium Chloride 1,000 mls @ 999 mls/hr 10/06/18 10:21 10/06/18 10:43 Normal Saline IV 10/06/18 11:21 999 mls/hr .BOLUS ONE Administration Iopamidol 100 ml 10/06/18 11:15 10/06/18 12:36 Isovue-300 (61%) IVPUSH 10/06/18 11:16 100 ml ONETIME ONE Administration Ondansetron HCl 4 mg 10/06/18 10:21 10/06/18 10:42 Zofran IV 10/06/18 10:22 4 mg ONETIME ONE Administration - Radiology Interpretation Free Text/Narrative:: [facility] Final Radiology Report Call: [phone] assistance Online chat: [email or web address] Name: REMA REYEZ Age: 68Years F Date: 10/06/2018 SSN: -- : [id number] Study: CT ABDOMEN/PELVIS W Requesting Physician: LEONEL REYNOLDS Images: [id number] Addl Studies: Provided Clinical History: With oral and IV contrast Contrast: With Contrast Medium: [id number] Contrast Amount: 100 mL Contrast Method: LAC IV Page 1 of 2 EXAM: CT Abdomen and Pelvis With Contrast EXAM DATE/TIME: 10/06/2018 12:17 PM CLINICAL HISTORY: 68 years old, female; Abdominal pain; Periumbilical; Patient HX: Umbilical hernia became hard and painful; Additional info: With oral and iv contrast TECHNIQUE: Imaging protocol: Axial computed tomography images of the abdomen and pelvis with intravenous contrast. Coronal and sagittal reformatted images were created and reviewed. Radiation optimization: All CT scans at this facility use at least one of these dose optimization techniques: automated exposure control; mA and/or kV adjustment per patient size (includes targeted exams where dose is matched to clinical indication); or iterative reconstruction. Contrast material: [id number]; Contrast volume: 100 ml; Contrast route: LAC IV; COMPARISON: No relevant prior studies available. FINDINGS: Lungs: There is bilateral lower lobe bronchiectasis. ABDOMEN: Liver: The liver is homogeneous and is not enlarged. Gallbladder and bile ducts: There is cholelithiasis. No gallbladder wall thickening. No pericholecystic fluid or inflammation. No biliary ductal dilatation. Pancreas: No peripancreatic inflammation. No pancreatic ductal dilation. Spleen: The spleen is homogeneous and is not enlarged. REMA REYEZ | Final Radiology Report CONFIDENTIALITY STATEMENT This report is intended only for use by the referring physician, and only in accordance with law. If you received this in error, call [phone]. Page 2 of 2 Adrenals: No adrenal mass. Kidneys and ureters: No hydronephrosis. No nephrolithiasis. There is mild scarring in the right kidney. Stomach and bowel: No bowel obstruction or diverticulitis. Appendix: No evidence of appendicitis. PELVIS: Bladder: No urinary bladder calculus or wall thickening. Reproductive: Unremarkable as visualized. ABDOMEN and PELVIS: Intraperitoneal space: No ascites or pneumoperitoneum. Bones/joints: There is multilevel disc degeneration and facet arthropathy in the lumbar spine and lower thoracic spine. There is a grade 1 degenerative spondylolisthesis of L4 on L5. There is mild bilateral hip joint degeneration. Soft tissues: There is an umbilical hernia. The hernia sac measures 11.9 cm x 7.6 cm in size. The hernia defect measures 2.3 cm x 1.2 cm in size. The hernia sac contains fat and a portion of the transverse colon. There is no wall thickening in the herniated portion of colon. Cannot rule out incarceration of the herniated contents. There is some stranding in the fat which could indicate inflammation or edema. Vasculature: No abdominal aortic aneurysm. No iliac or common femoral artery aneurysm. The mesenteric arteries are patent. There is a common trunk for the celiac axis and superior mesenteric artery, a developmental variant. The mesenteric, portal, and hepatic veins are patent. Lymph nodes: No enlarged lymph nodes. IMPRESSION: 1. Umbilical hernia containing fat and a portion of the transverse colon. While there is no colonic obstruction, cannot exclude incarceration of the hernia contents, nor inflammation/edema of the fat. 2. Cholelithiasis without acute cholecystitis. Thank you for allowing us to participate in the care of your patient. Dictated and Authenticated by: John Bae MD 10/06/2018 1:51 PM Central Time ([place] & [place]) - Re-Assessments/Exams Free Text/Narrative Re-Assessment/Exam: 10/06/18 14:01 Pt reports feeling partly improved following tx in ER. Pt instructed to f/u with Dr. Kuhn in clinic this week. Departure - Departure Time of Disposition: 14:04 Disposition: Home, Self-Care 01 Condition: Good Clinical Impression: Umbilical hernia Qualifiers: Obstruction and gangrene presence: without obstruction or gangrene Qualified Code(s): K42.9 - Umbilical hernia without obstruction or gangrene - Discharge Information *PRESCRIPTION DRUG MONITORING PROGRAM REVIEWED*: No *COPY OF PRESCRIPTION DRUG MONITORING REPORT IN PATIENT KIARA: No Instructions: Umbilical Hernia, Adult Forms: ED Department Discharge Additional Instructions: Rx: [place] 5mg/325mg Rx: Zofran 4mg Call [phone] tomorrow morning to schedule the first available appointment with Dr. Kuhn for a surgical consultation. - My Orders Last 24 Hours: My Active Orders 10/06/18 10:21 Peripheral IV Care [RC] . DIRECTED Sodium Chloride 0.9% [Saline Flush] 10 ml FLUSH ASDIRECTED PRN Peripheral IV Insertion Adult [OM.PC] Stat - Assessment/Plan Last 24 Hours: My Active Orders 10/06/18 10:21 Peripheral IV Care [RC] . DIRECTED Sodium Chloride 0.9% [Saline Flush] 10 ml FLUSH ASDIRECTED PRN Peripheral IV Insertion Adult [OM.PC] Stat I have read and agree with the documentation that has been completed regarding this visit. By signing this record, I attest that the documentation was completed in my physical presence and is an accurate record of the encounter."
[2018-10-06 14:24] VITALS: BP 145/63
== END 2018-10-06 14:15 | disposition home or self-care (01) ==
LOC: DL.ED 09:31
DX: K42.9 Umbilical hernia without obstruction or gangrene (principal); E78.00 Pure hypercholesterolemia, unspecified; I10 Essential (primary) hypertension; J45.909 Unspecified asthma, uncomplicated; E11.9 Type 2 diabetes mellitus without complications; E03.9 Hypothyroidism, unspecified; Z79.899 Other long term (current) drug therapy; Z79.82 Long term (current) use of aspirin; Z79.84 Long term (current) use of oral hypoglycemic drugs
CPT/HCPCS: 36415; 74177; 80053; 83605; 85025; 86140; 96361; 96374; 96375; 99284; J1170; J2405; J7030; Q9967

== ENCOUNTER 2018-10-09 14:29 | Day surgery (SDC) | payer MEDICARE, MEDICAID ==
[2018-10-09] MEDS: Lactated Ringers 1,000 ML IV SCH ×2 (12:15→15:23)
[2018-10-09] MEDS: Sodium Chloride 0.9% 10 ML Syringe IV PRN ×3 (12:15→22:20)
[~2018-10-09 14:29] MED LIST: Bupivacaine 0.25%/EPINEPHrine 1:200,000 30 ML SDV INJECT ONE; Bupivacaine 0.25%/EPINEPHrine 1:200,000 30 ML SDV ONE; Glycopyrrolate 0.2 MG/ML 2 ML SDV IV ONE; Midazolam 1 MG/ML 2 ML SDV IV ONE; Ondansetron 4 MG/2 ML SDV IV ONE; Ondansetron 4 MG/2 ML SDV IVPUSH PRN; Propofol 200 MG/20 ML SDV IV ONE; fentaNYL 100 MCG/2 ML SDV IV ONE; fentaNYL 250 MCG/5 ML SDV IV ONE
[2018-10-09] MEDS ORDERED: Sodium Chloride 0.9% 10 ML Syringe FLUSH PRN (14:32)
[2018-10-09] MEDS: Acetaminophen/oxyCODONE 325-5 MG Tab PO PRN (16:33)
[2018-10-09] MEDS: Morphine 2 MG/ML Syringe IVPUSH PRN ×2 (16:33→22:09)
--- NOTE | 2018-10-09 20:12 | OR ---
DATE: 10/09/2018 PREOPERATIVE DIAGNOSIS: Incarcerated umbilical hernia. POSTOPERATIVE DIAGNOSIS: Incarcerated umbilical hernia. PROCEDURE: Open repair of incarcerated umbilical hernia. ANESTHESIA: General. ESTIMATED BLOOD LOSS: Minimal. SPECIMEN: Hernia sac and omentum. INDICATION FOR PROCEDURE: This is a 68-year-old female has a large symptomatic tender umbilical hernia. CT scan shows this is filled with omentum and possibly some transverse colon. PROCEDURE IN DETAIL: After adequate preparation, elliptical incision was made around the umbilicus. I had informed her preoperatively that I would take the umbilical skin in this hernia repair to prevent wound healing complications. The incision was made through the skin, full-thickness, and the hernia sac was identified. This was then bluntly dissected free around the subcutaneous tissue and the sac was taken down to the linea alba. A circular incision around the linea alba was made to then free up the hernia. The contents of the hernia sac were then opened and the contents of the omentum were examined. It did not appear to have any colon within this, it just contained omentum. The opening actually was only about 2 cm and I had decided to amputate the distal end of the omentum rather than dealing with too much in the way of blood loss, so I amputated the omentum and tied, tied the stocks off with 0 Vicryl suture. The omentum was then reduced back into the abdomen. The wound was closed in a transverse fashion using interrupted #1 Prolene sutures. #0 Vicryl suture was used to close the space in the umbilical area where the hernia was and 4-0 Monocryl was used for the skin. 0.25% Marcaine anesthesia was used to infiltrate the muscle and the skin. [facility] /[id number]
--- NOTE | 2018-10-09 21:09 | EKG ---
10/09/2018 - REMA REYEZ - This 12-lead EKG shows a normal sinus rhythm with a ventricular rate of 66. Borderline left axis deviation. No acute ST-T wave changes. EKG is unchanged from previous EKG dated 02/07/2018. [facility] /[id number]
[2018-10-10] MEDS: Sodium Chloride 0.9% 10 ML Syringe IV PRN (01:33)
[2018-10-10] MEDS: Acetaminophen/oxyCODONE 325-5 MG Tab PO PRN (08:18)
--- NOTE | 2018-10-10 08:20 | PCM.SN ---
- Free Text/Narrative Note: Stable POD#1. Pain controlled. PO adequate. Wound clean and dry. Can DC today. No FU needed unless she has concerns. Nor restrictions on diet. Continue home meds the same. Percocet (#15) given for pain. Normal activity OK. May shower and get incision wet.
[2018-10-10 08:50] VITALS: BP 123/52; PULSE 74
== END 2018-10-10 10:20 | disposition home or self-care (01) ==
LOC: DL.SDS 10-10 10:20
PROVIDERS: ATTEND Surgery
DX: K42.0 Umbilical hernia with obstruction, without gangrene (principal); I10 Essential (primary) hypertension; E78.00 Pure hypercholesterolemia, unspecified; K21.9 Gastro-esophageal reflux disease without esophagitis; E11.9 Type 2 diabetes mellitus without complications; E03.9 Hypothyroidism, unspecified; Z79.84 Long term (current) use of oral hypoglycemic drugs; Z79.82 Long term (current) use of aspirin; Z79.899 Other long term (current) drug therapy
CPT/HCPCS: 00830; 49587; 82962; 88302; 93005; A9270; J2250; J2270; J2405; J2704; J3010; J3490; J7120

== ENCOUNTER 2018-10-20 18:44 | Emergency (ER) | payer MEDICARE, MEDICAID ==
[2018-10-20] MEDS ORDERED: GI Cocktail Oral Solution 30 ML PO ONE (19:04)
--- NOTE | 2018-10-20 19:06 | EDM.PDOC ---
ED HPI GENERAL MEDICAL PROBLEM - General Chief Complaint: Gastrointestinal Problem Stated Complaint: SHARP PAIN IN CHEST AND BACK Time Seen by Provider: 10/20/18 19:04 Source of Information: Reports: Patient History Limitations: Reports: No Limitations - History of Present Illness INITIAL COMMENTS - FREE TEXT/NARRATIVE: onset sharp pain in epiG region after eating [place] taco. denies N/V, no CP perse. - Related Data Allergies Allergy/AdvReac Type Severity Reaction Status Date / Time No Known Allergies Allergy Verified 10/20/18 19:25 Home Meds: Home Meds Albuterol [Proventil HFA] 2 puff INH Q4H PRN 09/08/13 [History] Levothyroxine [Synthroid] 50 mcg PO ACBRK 09/08/13 [History] Lisinopril [Prinivil] 40 mg PO DAILY 09/08/13 [History] Verapamil [Covera-HS] 240 mg PO BEDTIME 09/08/13 [History] metFORMIN [metFORMIN XR] 1,000 mg PO BIDM PRN 09/08/13 [History] Aspirin [Low Dose Aspirin EC] 1 tab PO DAILY 03/31/14 [History] Calcium Carbonate/Vitamin D3 [Calcium 500 + Vit D 200 Tablet] 1 tab PO DAILY 09/08 [History] Diclofenac Sodium [Voltaren 1% Gel] 1 squirt TRDERM BEDTIME 03/31/14 [History] Formoterol/Mometasone [Dulera 100 MCG/5 MCG] 2 puff INH BID 03/31/14 [History] Multivit-Mins No.5/Folic Acid [Eldercaps] 1 tab PO DAILY 03/31/14 [History] hydroCHLOROthiazide [Hydrochlorothiazide] 25 mg PO DAILY 12/18/17 [History] Alendronate [Fosamax] 35 mg PO WEEKLY 10/08/18 [History] Folic Acid 1 mg PO DAILY 10/08/18 [History] L.acidoph,Paracasei, B.lactis [Probiotic] 2 tab PO DAILY 10/08/18 [History] Magnesium Oxide 400 mg PO DAILY 10/08/18 [History] Potassium Chloride 8 meq PO DAILY 10/08/18 [History] Past Medical History - Past Health History Medical/Surgical History: Denies Medical/Surgical History HEENT History: Reports: None Cardiovascular History: Reports: High Cholesterol, Hypertension Respiratory History: Reports: Asthma Gastrointestinal History: Reports: GERD Genitourinary History: Reports: None INHALATION THERAPIST History: Reports: Other INHALATION THERAPIST History: tubal Musculoskeletal History: Reports: Arthritis, Osteoporosis Neurological History: Reports: None Psychiatric History: Reports: None Endocrine/Metabolic History: Reports: Diabetes, Type II, Hypothyroidism Hematologic History: Reports: None Immunologic History: Reports: None Oncologic (Cancer) History: Reports: None Dermatologic History: Reports: None - Infectious Disease History Infectious Disease History: Reports: Mumps - Past Surgical History Head Surgeries/Procedures: Reports: None HEENT Surgical History: Reports: Tonsillectomy Cardiovascular Surgical History: Reports: None Respiratory Surgical History: Reports: None GI Surgical History: Reports: None Female Surgical History: Reports: Section, Tubal Ligation Endocrine Surgical History: Reports: None Musculoskeletal Surgical History: Reports: Knee Replacement, Other (See Below) Other Musculoskeletal Surgeries/Procedures:: right bunion and hammer toe surgery 05/31/18 Social & Family History - Family History Family Medical History: Noncontributory - Caffeine Use Caffeine Use: Reports: Coffee, Tea - Living Situation & Occupation Living situation: Reports: with Family ED ROS GENERAL - Review of Systems Review Of Systems: ROS reveals no pertinent complaints other than HPI. ED EXAM, GI/ABD - Physical Exam Exam: See Below Exam Limited By: No Limitations General Appearance: Alert, WD/WN, Mild Distress, Other ([place]). No: Active Emesis Ears: Hearing Grossly Normal Throat/Mouth: Normal Voice, No Airway Compromise Head: Atraumatic Neck: Non-Tender, Full Range of Motion Respiratory/Chest: No Respiratory Distress Cardiovascular: Regular Rate, Rhythm GI/Abdominal Exam: Tender, Other (mild epiG tender). No: Distended, Guarding, Rigid, Rebound Neurological: Alert, Oriented, Normal Cognition, Normal Gait, No Motor/Sensory Deficits Psychiatric: Flat Affect Skin Exam: Warm, Dry, Normal Color Lymphatic: No Adenopathy Course - Vital Signs Last Recorded V/S: Last Vital Signs Temp 37.0 C 10/20/18 19:05 Pulse 80 10/20/18 19:05 Resp 14 10/20/18 19:05 BP 116/70 10/20/18 19:05 Pulse Ox 94 L 10/20/18 19:05 - Orders/Labs/Meds Meds: Medications Discontinued Medications Generic Name Dose Route Start Last Admin Trade Name [place] PRN Reason Stop Dose Admin Al Hydroxide/Mg Hydroxide 30 ml 10/20/18 19:04 10/20/18 19:18 Gi Cocktail PO 10/20/18 19:05 30 ml ONETIME ONE Administration - Re-Assessments/Exams Free Text/Narrative Re-Assessment/Exam: 10/20/18 19:43 re-exam; s/p GI cocktail = pain gone. Departure - Departure Time of Disposition: 19:43 Disposition: Home, Self-Care 01 Condition: Good Clinical Impression: GERD (gastroesophageal reflux disease) Qualifiers: Esophagitis presence: with esophagitis Qualified Code(s): K21.0 - Gastro- esophageal reflux disease with esophagitis - Discharge Information Instructions: Food Choices for Gastroesophageal Reflux Disease, Adult Forms: ED Department Discharge Additional Instructions: 1) avoid tacos next 24 hours 2) have jello 3) recheck as needed
[2018-10-20 19:07] VITALS: BP 116/70
== END 2018-10-20 19:50 | disposition home or self-care (01) ==
LOC: DL.ED 18:44
DX: K21.0 Gastro-esophageal reflux disease with esophagitis (principal); I10 Essential (primary) hypertension; E78.00 Pure hypercholesterolemia, unspecified; E11.9 Type 2 diabetes mellitus without complications; E03.9 Hypothyroidism, unspecified; Z79.899 Other long term (current) drug therapy
CPT/HCPCS: 99283; A9270

== ENCOUNTER 2019-06-19 06:57 | Day surgery (SDC) | payer MEDICARE, MEDICAID ==
[~2019-06-19 06:57] MED LIST changes: -Bupivacaine 0.25%/EPINEPHrine 1:200,000 30 ML SDV INJECT ONE; -Bupivacaine 0.25%/EPINEPHrine 1:200,000 30 ML SDV ONE; -Glycopyrrolate 0.2 MG/ML 2 ML SDV IV ONE; +Lactated Ringers 1,000 ML IV SCH; -Midazolam 1 MG/ML 2 ML SDV IV ONE; -Ondansetron 4 MG/2 ML SDV IV ONE; -Ondansetron 4 MG/2 ML SDV IVPUSH PRN; -Propofol 200 MG/20 ML SDV IV ONE; +Sodium Chloride 0.9% 10 ML Syringe FLUSH PRN; -fentaNYL 100 MCG/2 ML SDV IV ONE; -fentaNYL 250 MCG/5 ML SDV IV ONE
[2019-06-19] MEDS ORDERED: fentaNYL 100 MCG/2 ML SDV IV ONE (06:58)
[2019-06-19] MEDS ORDERED: Bupivacaine 0.5% 30 ML SDV ONE ×2 (06:58→08:07)
[2019-06-19] MEDS ORDERED: Propofol 200 MG/20 ML SDV IV ONE (06:58)
[2019-06-19] MEDS ORDERED: Ondansetron 4 MG/2 ML SDV IV ONE (06:58)
[2019-06-19] MEDS ORDERED: Lidocaine 1% 30 ML SDV ONE ×2 (06:58→08:07)
[2019-06-19] MEDS ORDERED: Midazolam 1 MG/ML 2 ML SDV IV ONE (06:58)
[2019-06-19] MEDS ORDERED: Bupivacaine 0.5% 30 ML SDV INJECT ONE ×2 (08:34→09:06)
[2019-06-19] MEDS ORDERED: Lidocaine 1% 30 ML SDV INJECT ONE ×2 (08:34→09:06)
[2019-06-19] MEDS ORDERED: Acetaminophen/oxyCODONE 325-5 MG Tab PO PRN (09:25)
--- NOTE | 2019-06-19 09:28 | PCM.OPNOTE ---
- General Post-Op/Procedure Note Date of Surgery/Procedure: 06/19/19 Operative Procedure(s): right foot hardware removal Pre Op Diagnosis: right foot painful hardware 1st metatarsal with hypertrophic bone Post-Op Diagnosis: saurav Anesthesia Technique: Local, MAC Primary Surgeon: Lesa Burgess Anesthesia Provider: Jacob Pisano EBJey in mLs: 5 Complications: none Condition: Good Free Text/Narrative:: Pt tolerated procedure well and was transported to recovery with vascular status intact to right foot. well padded compression dressing applied.
[2019-06-19 10:34] VITALS: BP 109/49; PULSE 71
--- NOTE | 2019-06-19 15:39 | OR ---
DATE: 06/19/2019 PREOPERATIVE DIAGNOSIS: Right foot painful hardware with hypertrophic bone formation. POSTOPERATIVE DIAGNOSIS: Right foot painful hardware with hypertrophic bone formation. PROCEDURE PERFORMED: Right foot hardware removal with bone excision. ANESTHESIA: Local MAC with preoperative block of 10 mL 1:1 mixture of 1% lidocaine plain, 0.5% Marcaine plain. TOURNIQUET TIME: 22 minutes, pneumatic ankle tourniquet. ESTIMATED BLOOD LOSS: Minimal. SPECIMEN: None. COMPLICATIONS: None. INDICATIONS: Sonya is a 68-year-old female who presents status post bunionectomy of her right foot, now with a complaint of a painful lump on the top of her foot at the surgical area. She states that it hurts when she is wearing shoes or with any pressure to this area. She has tried wider shoes and padding with no relief. X-rays of the right foot revealed screws intact to the first metatarsal and first digit, the screw at the first metatarsal is prominent at the dorsal aspect and there was hypertrophic bone formation around the screw head, this is the area of pain with palpation. The patient voiced good understanding of proposed procedure and possible complications, elects to have surgery at this time. DESCRIPTION OF PROCEDURE: The patient was taken to the operating room lying in supine position. After adequate anesthesia induction as described above, the right foot was prepped and draped in the usual sterile fashion. A pneumatic ankle tourniquet was inflated to 225 mmHg. Attention was then directed to the dorsal aspect of the first metatarsal at the old surgical incision where an approximately 3-cm linear incision was made overlying the prominent area. Sharp and blunt dissection were performed down to the level of the bony prominence/prominent hardware. There was noted to be hypertrophic bone at this area and this was resected with a rongeur; after resection, the screw head was identified and the screw was removed. The area was then filed down with a bone rasp to ensure no prominent areas. Fluoroscopy was used to verify no further bony prominence, and I also looked at the screw at the first digit, this did appear to be buried within the bone and there was no prominent areas, this did not bother the patient, so we left that screw in. The area was then irrigated with copious amounts of sterile saline. Deep closure was completed with 3-0 Vicryl and skin closure was completed with 4-0 nylon. The area was dressed with Xeroform to the incision site, fluffs, Webril, and an Tyrone wrap. She was placed into a postoperative shoe. She tolerated procedure and anesthesia well and left the operating room for recovery with vital signs stable and vascular status intact to the right foot as noted by immediate hyperemia upon deflation of the ankle tourniquet. Patient was then discharged home when she met hospital discharge requirements. [facility] /[id number]
== END 2019-06-19 11:10 | disposition home or self-care (01) ==
LOC: DL.SDS 06:57
PROVIDERS: ATTEND Podiatrist
DX: T84.84XA Pain due to internal orthopedic prosthetic devices, implants and grafts, initial encounter (principal); M89.371 Hypertrophy of bone, right ankle and foot; I10 Essential (primary) hypertension; E11.9 Type 2 diabetes mellitus without complications; I25.10 Atherosclerotic heart disease of native coronary artery without angina pectoris; J45.909 Unspecified asthma, uncomplicated; E03.9 Hypothyroidism, unspecified; E78.5 Hyperlipidemia, unspecified; G89.29 Other chronic pain; M54.9 Dorsalgia, unspecified; D50.9 Iron deficiency anemia, unspecified; M85.80 Other specified disorders of bone density and structure, unspecified site; M19.90 Unspecified osteoarthritis, unspecified site; E66.01 Morbid (severe) obesity due to excess calories; Y83.1 Surgical operation with implant of artificial internal device as the cause of abnormal reaction of the patient, or of later complication, without mention of misadventure at the time of the procedure; Z88.2 Allergy status to sulfonamides; Z88.8 Allergy status to other drugs, medicaments and biological substances; Z79.82 Long term (current) use of aspirin; Z79.84 Long term (current) use of oral hypoglycemic drugs; Z79.899 Other long term (current) drug therapy; Z96.653 Presence of artificial knee joint, bilateral; Z98.890 Other specified postprocedural states
CPT/HCPCS: 20680; A9270; J2001; J2250; J2405; J2704; J3010; J3490; J7120; 01480

== ENCOUNTER 2019-07-06 13:17 | Emergency (ER) | payer MEDICARE, MEDICAID, OTHER ==
[2019-07-06 13:34] VITALS: BP 132/67; PULSE 69
[2019-07-06] MEDS ORDERED: diphenhydrAMINE 25 MG Tab PO ONE (15:00)
[2019-07-06] MEDS ORDERED: Tetracaine HCl/PF 0.5% 4 ML Bottle EYEBOTH ONE (15:00)
--- NOTE | 2019-07-06 15:11 | EDM.PDOC ---
Scribed by Ofelia Dewitt 07/06/19 1797 for Jaxon Reynolds MD ED HPI GENERAL MEDICAL PROBLEM - General Chief Complaint: Eye Problems Stated Complaint: BURNING EYES Time Seen by Provider: 07/06/19 14:45 Source of Information: Reports: Patient, RN, RN Notes Reviewed History Limitations: Reports: No Limitations - History of Present Illness INITIAL COMMENTS - FREE TEXT/NARRATIVE: Patient presents to ER by POV with complaint pf eyes burning for 3-4 days. She denies any injury, states just burning. She rates the pain 7/10. She states she uses over the counter eye drops and that makes them burn. She states eyesight is ok. She wears reading glasses if needed. She last took Ibuprofen 800 mg last at 0700. Onset: Gradual Duration: Constant Location: Reports: Other (eyes) Quality: Reports: Burning Severity: Moderate Improves with: Reports: None Worsens with: Reports: None Associated Symptoms: Reports: No Other Symptoms Eye Pain Score (Numeric/FACES): 7 - Related Data Allergies Allergy/AdvReac Type Severity Reaction Status Date / Time brompheniramine Allergy Cannot Verified 07/06/19 13:34 Remember dextromethorphan Allergy Cannot Verified 07/06/19 13:34 Remember phenylpropanolamine Allergy Cannot Verified 07/06/19 13:34 Remember sulfamethoxazole Allergy Cannot Verified 07/06/19 13:34 [From Bactrim] Remember trimethoprim [From Bactrim] Allergy Cannot Verified 07/06/19 13:34 Remember Home Meds: Home Meds Albuterol [Proventil HFA] 2 puff INH Q4H PRN 09/08/13 [History] Levothyroxine [Synthroid] 50 mcg PO ACBRK 09/08/13 [History] Verapamil [Covera-HS] 240 mg PO BEDTIME 09/08/13 [History] lisinopriL [Prinivil] 40 mg PO DAILY 09/08/13 [History] metFORMIN [metFORMIN XR] 1,000 mg PO BIDM PRN 09/08/13 [History] Aspirin [Low Dose Aspirin EC] 81 mg PO DAILY 03/31/14 [History] Calcium Carbonate/Vitamin D3 [Calcium 500 + Vit D 200 Tablet] 1 tab PO DAILY 09/08 [History] Diclofenac Sodium [Voltaren 1% Gel] 1 squirt TRDERM BEDTIME 03/31/14 [History] Formoterol/Mometasone [Dulera 100 MCG/5 MCG] 2 puff INH BID 03/31/14 [History] Multivit-Mins No.5/Folic Acid [Eldercaps] 1 tab PO DAILY 03/31/14 [History] hydroCHLOROthiazide [Hydrochlorothiazide] 25 mg PO DAILY 12/18/17 [History] Alendronate [Fosamax] 35 mg PO WEEKLY 10/08/18 [History] Folic Acid 1 mg PO DAILY 10/08/18 [History] Magnesium Oxide 400 mg PO DAILY 10/08/18 [History] Potassium Chloride 8 meq PO DAILY 10/08/18 [History] Ibuprofen 800 mg PO DAILY 06/18/19 [History] Past Medical History - Past Health History Medical/Surgical History: Denies Medical/Surgical History HEENT History: Reports: None Cardiovascular History: Reports: High Cholesterol, Hypertension Respiratory History: Reports: Asthma Gastrointestinal History: Reports: GERD Genitourinary History: Reports: None INVESTMENT SPECIALIST History: Reports: , Other (See Below) Other INVESTMENT SPECIALIST History: tubal Musculoskeletal History: Reports: Arthritis, Osteoporosis Neurological History: Reports: None Psychiatric History: Reports: None Endocrine/Metabolic History: Reports: Diabetes, Type II, Hypothyroidism, Obesity /BMI 30+, Osteoporosis Hematologic History: Reports: None Immunologic History: Reports: None Oncologic (Cancer) History: Reports: None Dermatologic History: Reports: None - Infectious Disease History Infectious Disease History: Reports: Measles - Past Surgical History Head Surgeries/Procedures: Reports: None HEENT Surgical History: Reports: Tonsillectomy Cardiovascular Surgical History: Reports: None Respiratory Surgical History: Reports: None GI Surgical History: Reports: Hernia Repair/Other Female Surgical History: Reports: Section, Tubal Ligation Endocrine Surgical History: Reports: None Neurological Surgical History: Reports: None Musculoskeletal Surgical History: Reports: Knee Replacement, Other (See Below) Other Musculoskeletal Surgeries/Procedures:: right bunion and hammer toe surgery 05/31/18 Oncologic Surgical History: Reports: None Dermatological Surgical History: Reports: None Social & Family History - Family History Family Medical History: Noncontributory - Tobacco Use Smoking Status *Q: Never Smoker Second Hand Smoke Exposure: No - Caffeine Use Caffeine Use: Reports: Coffee Other Caffeine Use: IN THE AM - Recreational Drug Use Recreational Drug Use: No - Living Situation & Occupation Living situation: Reports: with Family ED ROS GENERAL - Review of Systems Review Of Systems: Comprehensive ROS is negative, except as noted in HPI. ED EXAM GENERAL W FULL EYE - Physical Exam Exam: See Below Exam Limited By: No Limitations General Appearance: Alert, WD/WN, No Apparent Distress Eye Exam: Bilateral Eye: Conjunctival Injection (mild with cobblestone appearance and clear watery eyes ), EOMI, Periorbital Changes (Mild urticarial changer to periorbital skin), PERRL Eyelids: Bilateral: Erythema (urticarial, mild) Conjunctiva & Sclera: Bilateral: Conjunctival Edema Cornea Exam: Bilateral: Normal Appearance Extraocular Movements: Bilateral: Intact Pupils: Normal Accommodation Pupillary Size: Bilateral: 3 mm Pupillary Reaction: Bilateral: Brisk Anterior Chamber: Bilateral: Normal Appearance Ears: Normal External Exam, Normal Canal, Hearing Grossly Normal, Normal TMs Nose: Normal Inspection, Normal Mucosa, No Blood Throat/Mouth: Normal Inspection, Normal Lips, Normal Teeth, Normal Gums, Normal Oropharynx, Normal Voice, No Airway Compromise Head: Atraumatic, Normocephalic Neck: Normal Inspection, Supple, Non-Tender, Full Range of Motion. No: Lymphadenopathy (L), Lymphadenopathy (R) Respiratory/Chest: No Respiratory Distress Neurological: Alert, Oriented, CN II-XII Intact, Normal Cognition, No Motor/ Sensory Deficits Psychiatric: Normal Affect, Normal Mood Course - Vital Signs Last Recorded V/S: Last Vital Signs Temp 98.4 F 07/06/19 13:30 Pulse 69 07/06/19 13:30 Resp 16 07/06/19 13:30 BP 132/67 07/06/19 13:30 Pulse Ox 98 07/06/19 13:30 - Orders/Labs/Meds Orders: Active Orders 24 hr Category Date Time Status Tetracaine HCl/PF [Tetracaine 0.5% Steri-Unit Marybeth] Med 07/06/19 15:00 Once 1 ml EYEBOTH ONETIME ONE diphenhydrAMINE [Benadryl] Med 07/06/19 15:00 Once 25 mg PO ONETIME ONE Departure - Departure Time of Disposition: 15:01 Disposition: Home, Self-Care 01 Condition: Good Clinical Impression: Scleritis and episcleritis of both eyes Allergic conjunctivitis Qualifiers: Laterality: bilateral Qualified Code(s): H10.13 - Acute atopic conjunctivitis, bilateral - Discharge Information *PRESCRIPTION DRUG MONITORING PROGRAM REVIEWED*: Not Applicable *COPY OF PRESCRIPTION DRUG MONITORING REPORT IN PATIENT KIARA: Not Applicable Instructions: Allergic Conjunctivitis, Adult, [id number], Scleritis and Episcleritis Forms: ED Department Discharge Additional Instructions: Rx: Prednisolone Ophthalmic 1% Rx: Zytrec 10mg Use over the counter Refresh Eye Drops: one or two drops in both eyes every 2 to 4 hours while awake as needed for dry or irritated eyes. Do not rub or wipe your eyes. Follow up in clinic if not improving in 3 days. Sepsis Event Note - Evaluation Sepsis Screening Result: No Definite Risk - Focused Exam Vital Signs: Vital Signs Temp Pulse Resp BP Pulse Ox 07/06/19 13:30 98.4 F 69 16 132/67 98 Date Exam was Performed: 07/06/19 Time Exam was Performed: 15:01 - My Orders Last 24 Hours: My Active Orders 07/06/19 15:00 Tetracaine HCl/PF [Tetracaine 0.5% Steri-Unit Marybeth] 1 ml EYEBOTH ONETIME ONE diphenhydrAMINE [Benadryl] 25 mg PO ONETIME ONE - Assessment/Plan Last 24 Hours: My Active Orders 07/06/19 15:00 Tetracaine HCl/PF [Tetracaine 0.5% Steri-Unit Marybeth] 1 ml EYEBOTH ONETIME ONE diphenhydrAMINE [Benadryl] 25 mg PO ONETIME ONE I have read and agree with the documentation that has been completed regarding this visit. By signing this record, I attest that the documentation was completed in my physical presence and is an accurate record of the encounter.
== END 2019-07-06 15:15 | disposition home or self-care (01) ==
LOC: DL.ED 13:17
DX: H15.003 Unspecified scleritis, bilateral (principal); H15.103 Unspecified episcleritis, bilateral; H10.13 Acute atopic conjunctivitis, bilateral; I10 Essential (primary) hypertension; E78.00 Pure hypercholesterolemia, unspecified; E11.9 Type 2 diabetes mellitus without complications; Z79.84 Long term (current) use of oral hypoglycemic drugs; Z79.899 Other long term (current) drug therapy; Z88.2 Allergy status to sulfonamides; Z88.1 Allergy status to other antibiotic agents; Z88.8 Allergy status to other drugs, medicaments and biological substances
CPT/HCPCS: 99283; A9270

== ENCOUNTER 2019-11-13 20:47 | Emergency (ER) | payer MEDICARE, MEDICAID ==
[2019-11-13 21:00] VITALS: BP 133/55; PULSE 90
[2019-11-13 21:55] LABS: ANION GAP 13.1 mEq/L (7-13)
--- NOTE | 2019-11-13 22:47 | EDM.PDOC ---
ED HPI GENERAL MEDICAL PROBLEM - General Chief Complaint: Abdominal Pain Stated Complaint: SHARP PAINS IN STOMACH Time Seen by Provider: 11/13/19 21:00 Source of Information: Reports: Patient History Limitations: Reports: No Limitations - History of Present Illness INITIAL COMMENTS - FREE TEXT/NARRATIVE: ED with c/o intermittent pain above umbilicus after eating "hard food" like meat, lasting 1-2 minutes, no associated nausea or vomiting No fever or chills, Pain x 1 week. No pain at present. Reports hernia repair 4 months ago. No cough, No SOB. No urinary c/o No change in bowel habits. Last BM today. Right Middle Abdomen Pain Score (Numeric/FACES): 7 - Related Data Allergies Allergy/AdvReac Type Severity Reaction Status Date / Time brompheniramine Allergy Cannot Verified 11/13/19 21:10 Remember dextromethorphan Allergy Cannot Verified 11/13/19 21:10 Remember phenylpropanolamine Allergy Cannot Verified 11/13/19 21:10 Remember sulfamethoxazole Allergy Cannot Verified 11/13/19 21:10 [From Bactrim] Remember trimethoprim [From Bactrim] Allergy Cannot Verified 11/13/19 21:10 Remember Home Meds: Home Meds Albuterol [Proventil HFA] 2 puff INH Q4H PRN 09/08/13 [History] Levothyroxine [Synthroid] 50 mcg PO ACBRK 09/08/13 [History] Verapamil [Covera-HS] 240 mg PO BEDTIME 09/08/13 [History] lisinopriL [Prinivil] 40 mg PO DAILY 09/08/13 [History] metFORMIN [metFORMIN XR] 1,000 mg PO BIDM PRN 09/08/13 [History] Aspirin [Low Dose Aspirin EC] 81 mg PO DAILY 03/31/14 [History] Calcium Carbonate/Vitamin D3 [Calcium 500 + Vit D 200 Tablet] 1 tab PO DAILY 03/31/14 [History] Diclofenac Sodium [Voltaren 1% Gel] 1 squirt TRDERM BEDTIME 03/31/14 [History] Formoterol/Mometasone [Dulera 100 MCG/5 MCG] 2 puff INH BID 03/31/14 [History] Multivit-Mins No.5/Folic Acid [Eldercaps] 1 tab PO DAILY 03/31/14 [History] hydroCHLOROthiazide [Hydrochlorothiazide] 25 mg PO DAILY 12/18/17 [History] Alendronate [Fosamax] 35 mg PO WEEKLY 10/08/18 [History] Folic Acid 1 mg PO DAILY 10/08/18 [History] Magnesium Oxide 400 mg PO DAILY 10/08/18 [History] Potassium Chloride 8 meq PO DAILY 10/08/18 [History] Ibuprofen 800 mg PO DAILY 06/18/19 [History] Past Medical History - Past Health History Medical/Surgical History: Denies Medical/Surgical History HEENT History: Reports: None Cardiovascular History: Reports: High Cholesterol, Hypertension Respiratory History: Reports: Asthma Gastrointestinal History: Reports: GERD Genitourinary History: Reports: None 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: , Other (See Below) Other SOLAR FABRICATION TECHNICIAN History: tubal Musculoskeletal History: Reports: Arthritis, Osteoporosis Neurological History: Reports: None Psychiatric History: Reports: None Endocrine/Metabolic History: Reports: Diabetes, Type II, Hypothyroidism, Obesity/BMI 30+, Osteoporosis Hematologic History: Reports: None Immunologic History: Reports: None Oncologic (Cancer) History: Reports: None Dermatologic History: Reports: None - Infectious Disease History Infectious Disease History: Reports: Measles - Past Surgical History Head Surgeries/Procedures: Reports: None HEENT Surgical History: Reports: Tonsillectomy Cardiovascular Surgical History: Reports: None Respiratory Surgical History: Reports: None GI Surgical History: Reports: Hernia Repair/Other Female Surgical History: Reports: Section, Tubal Ligation Endocrine Surgical History: Reports: None Neurological Surgical History: Reports: None Musculoskeletal Surgical History: Reports: Knee Replacement, Other (See Below) Other Musculoskeletal Surgeries/Procedures:: right bunion and hammer toe surgery 05/31/18 Oncologic Surgical History: Reports: None Dermatological Surgical History: Reports: None Social & Family History - Family History Family Medical History: Noncontributory - Tobacco Use Smoking Status *Q: Never Smoker Second Hand Smoke Exposure: No - Caffeine Use Caffeine Use: Reports: Coffee Other Caffeine Use: IN THE AM - Recreational Drug Use Recreational Drug Use: No - Living Situation & Occupation Living situation: Reports: with Family ED ROS GENERAL - Review of Systems Review Of Systems: Comprehensive ROS is negative, except as noted in HPI. ED EXAM, GI/ABD - Physical Exam Exam: See Below Exam Limited By: No Limitations General Appearance: Alert, No Apparent Distress, Obese Eyes: Bilateral: EOMI Ears: Normal External Exam Nose: Normal Inspection Throat/Mouth: Normal Inspection Head: Atraumatic, Normocephalic Neck: Normal Inspection Respiratory/Chest: No Respiratory Distress, Lungs Clear, Normal Breath Sounds Cardiovascular: Normal Peripheral Pulses, Regular Rate, Rhythm GI/Abdominal Exam: Normal Bowel Sounds, Soft, Tender (mild above well healed umbilical incision with deep palpation). No: Hernia Rectal (Female) Exam: Heme - Stool Extremities: Normal Inspection Neurological: Alert, Oriented Psychiatric: Normal Affect, Normal Mood Skin Exam: Warm, Dry, Intact, Normal Color Course - Vital Signs Last Recorded V/S: Last Vital Signs Temp 97.6 F 11/13/19 20:57 Pulse 90 11/13/19 20:57 Resp 21 H 11/13/19 20:57 BP 133/55 L 11/13/19 20:57 Pulse Ox 97 11/13/19 20:57 - Orders/Labs/Meds Orders: Active Orders 24 hr Category Date Time Status CULTURE BLOOD [BC] Stat Lab 11/13/19 21:27 Received Labs: Laboratory Tests 11/13/19 11/13/19 11/13/19 Range/Units 21:23 21:27 21:27 WBC 7.4 (5.0-10.0) 10^3/uL RBC 4.31 (4.2-5.4) 10^6/uL Hgb 11.7 L (12.0-16.0) g/dL Hct 37.3 (37.0-47.0) % MCV 86.5 (80-100) fL MCH 27.1 (27.0-34.0) pg MCHC 31.4 L (33.0-35.0) g/dL Plt Count 249 (150-450) 10^3/uL Neut % (Auto) 63.4 (42.2-75.2) % Lymph % (Auto) 27.2 (20.5-50.1) % [place] % (Auto) 6.7 (2-8) % Eos % (Auto) 2.3 (1.0-3.0) % Baso % (Auto) 0.4 (0.0-1.0) % Sodium 142 (136-145) mmol/L Potassium 4.1 (3.5-5.1) mmol/L Chloride 105 (98-107) mmol/L Carbon Dioxide 28 (21-32) mmol/L Anion Gap 13.1 H (7-13) mEq/L BUN 25 H (7-18) mg/dL Creatinine 1.31 H (0.55-1.02) mg/dL Est Cr Clr Drug Dosing 39.41 mL/min Estimated GFR (MDRD) 40 BUN/Creatinine Ratio 19.1 (No establ ref range) Glucose 141 H (74-99) mg/dL Lactic Acid (0.4-2.0) mmol/L Calcium 9.1 (8.5-10.1) mg/dL Total Bilirubin 0.6 (0.2-1.0) mg/dL AST 18 (15-37) U/L ALT 21 (14-59) U/L Alkaline Phosphatase 114 (46-116) U/L Total Protein 7.4 (6.4-8.2) g/dL Albumin 3.7 (3.4-5.0) g/dL Globulin 3.7 Albumin/Globulin Ratio 1.0 Amylase 43 (25-115) U/L Lipase 128 (73-393) U/L Urine Color Yellow (YELLOW) Urine Appearance Clear (CLEAR) Urine pH 6.5 (5.0-9.0) Ur Specific [place] 1.025 (1.005-1.030) Urine Protein Negative (NEGATIVE) Urine Glucose (UA) Negative (NEGATIVE) Urine Ketones Negative (NEGATIVE) Urine Occult Blood Negative (NEGATIVE) Urine Nitrite Negative (NEGATIVE) Urine Bilirubin Negative (NEGATIVE) Urine Urobilinogen 0.2 (0.2-1.0) mg/dL Ur Leukocyte Esterase Negative (NEGATIVE) 11/12/ Range/Units 21:27 WBC (5.0-10.0) 10^3/uL RBC (4.2-5.4) 10^6/uL Hgb (12.0-16.0) g/dL Hct (37.0-47.0) % MCV (80-100) fL MCH (27.0-34.0) pg MCHC (33.0-35.0) g/dL Plt Count (150-450) 10^3/uL Neut % (Auto) (42.2-75.2) % Lymph % (Auto) (20.5-50.1) % [place] % (Auto) (2-8) % Eos % (Auto) (1.0-3.0) % Baso % (Auto) (0.0-1.0) % Sodium (136-145) mmol/L Potassium (3.5-5.1) mmol/L Chloride (98-107) mmol/L Carbon Dioxide (21-32) mmol/L Anion Gap (7-13) mEq/L BUN (7-18) mg/dL Creatinine (0.55-1.02) mg/dL Est Cr Clr Drug Dosing mL/min Estimated GFR (MDRD) BUN/Creatinine Ratio (No establ ref range) Glucose (74-99) mg/dL Lactic Acid 1.4 (0.4-2.0) mmol/L Calcium (8.5-10.1) mg/dL Total Bilirubin (0.2-1.0) mg/dL AST (15-37) U/L ALT (14-59) U/L Alkaline Phosphatase (46-116) U/L Total Protein (6.4-8.2) g/dL Albumin (3.4-5.0) g/dL Globulin Albumin/Globulin Ratio Amylase (25-115) U/L Lipase (73-393) U/L Urine Color (YELLOW) Urine Appearance (CLEAR) Urine pH (5.0-9.0) Ur Specific [place] (1.005-1.030) Urine Protein (NEGATIVE) Urine Glucose (UA) (NEGATIVE) Urine Ketones (NEGATIVE) Urine Occult Blood (NEGATIVE) Urine Nitrite (NEGATIVE) Urine Bilirubin (NEGATIVE) Urine Urobilinogen (0.2-1.0) mg/dL Ur Leukocyte Esterase (NEGATIVE) Departure - Departure Time of Disposition: 23:37 Disposition: Home, Self-Care 01 Condition: Good Clinical Impression: Abdominal pain, Gall bladder stones Umbilical hernia Qualifiers: Obstruction and gangrene presence: without obstruction or gangrene Qualified Code(s): K42.9 - Umbilical hernia without obstruction or gangrene - Discharge Information *PRESCRIPTION DRUG MONITORING PROGRAM REVIEWED*: No *COPY OF PRESCRIPTION DRUG MONITORING REPORT IN PATIENT KIARA: No Instructions: Umbilical Hernia, Adult Forms: ED Department Discharge Additional Instructions: Clinic follow up if not improving consider surgical evaluation for gall stones increase fruit and fiber in diet tylenol 650 every 6 hours as needed for discomfort smaller more frequent meals may decrease discomfort Sepsis Event Note (ED) - Evaluation Sepsis Screening Result: No Definite Risk - Focused Exam Vital Signs: Vital Signs Temp Pulse Resp BP Pulse Ox 11/13/19 20:57 97.6 F 90 21 H 133/55 L 97 - My Orders Last 24 Hours: My Active Orders 11/13/19 21:27 CULTURE BLOOD [BC] Stat - Assessment/Plan Last 24 Hours: My Active Orders 11/13/19 21:27 CULTURE BLOOD [BC] Stat
--- NOTE | 2019-11-13 23:22 | CT ---
PROCEDURE INFORMATION: Exam: CT Abdomen And Pelvis Without Contrast Exam date and time: 11/13/2019 10:58 PM Age: 69 years old Clinical indication: Other: Umbilical hernia repair 4 months ago; Additional info: Periumbilical pain with eating, TECHNIQUE: Imaging protocol: Computed tomography of the abdomen and pelvis without contrast. Radiation optimization: All CT scans at this facility use at least one of these dose optimization techniques: automated exposure control; mA and/or kV adjustment per patient size (includes targeted exams where dose is matched to clinical indication); or iterative reconstruction. COMPARISON: CT Abdomen Pelvis w Cont 10/06/2018 12:17 PM FINDINGS: Lungs: Moderate right lower lobe bronchiectasis. Several of the abnormal airways in the right lower lobe are fluid-filled.Mild non-specific patchy linear density at both bases. These changes could be inflammatory or could reflect atelectasis. Liver: Normal. No mass. Gallbladder and bile ducts: There are large calcified gallstones measuring up to 3.5 cm. Gallbladder appears slightly thick-walled.There is no evidence of biliary ductal dilation. Pancreas: Normal. No ductal dilation. Spleen: Normal. No splenomegaly. Adrenals: Normal. No mass. Kidneys and ureters: Normal. No hydronephrosis. Stomach and bowel: The colon is interposed between the diaphragm in the right lobe of the liver. The cecum lies between the liver and diaphragm. Non-specific/nonobstructive intestinal gas pattern. Appendix: The appendix is not specifically identified. There is no evidence of fluid or inflammatory stranding at the base of the cecum. Intraperitoneal space: See "Soft tissues" finding. Vasculature: Unremarkable. No abdominal aortic aneurysm. Lymph nodes: Unremarkable. No enlarged lymph nodes. Bladder: Unremarkable as visualized. Reproductive: Unremarkable as visualized. Bones/joints: The lumbar spine demonstrates marked degenerative changes at multiple levels. Grade 1 degenerative spondylolisthesis L4 upon L5. Soft tissues: There is a bilobed fat containing periumbilical hernia. The right component has a defect measuring 20 mm and contains omental fat. The left-sided component has a defect measuring 9 mm and contains omental fat. It would appear there has been attempted hernia repair , the hernia is much smaller than on the prior study. Some induration of the fat about the hernia, no induration of the fat in the hernia. Other findings: Moderate diffuse emphysematous changes are present. IMPRESSION: 1. There are 2 adjacent fat containing periumbilical hernias 1 on the right 1 on the left, no bowel loops involved. These likely reflect residual and/or recurrent abdominal hernias, patient has undergone attempted hernia repair. 2. Cholelithiasis. Gallbladder appears thick-walled. Correlate with LFTs. 3. Appendix is nonvisualized. The cecum, and presumably the appendix, lie between the liver and diaphragm. 4. Chronic lung disease as described. Thoracic imaging may be warranted
== END 2019-11-13 23:47 | disposition home or self-care (01) ==
LOC: DL.ED 20:47
DX: K42.9 Umbilical hernia without obstruction or gangrene (principal); K80.20 Calculus of gallbladder without cholecystitis without obstruction; E78.00 Pure hypercholesterolemia, unspecified; I10 Essential (primary) hypertension; J45.909 Unspecified asthma, uncomplicated; M19.90 Unspecified osteoarthritis, unspecified site; E11.9 Type 2 diabetes mellitus without complications; E03.9 Hypothyroidism, unspecified; E66.9 Obesity, unspecified; Z68.38 Body mass index [BMI] 38.0-38.9, adult; Z88.2 Allergy status to sulfonamides; Z88.1 Allergy status to other antibiotic agents; Z88.8 Allergy status to other drugs, medicaments and biological substances; Z79.82 Long term (current) use of aspirin; Z79.84 Long term (current) use of oral hypoglycemic drugs; Z79.899 Other long term (current) drug therapy
CPT/HCPCS: 36415; 74176; 80053; 81003; 82150; 82272; 83605; 83690; 85025; 87040; 99284-25

== ENCOUNTER 2020-08-03 07:39 | Emergency (ER) | payer MEDICARE, MEDICAID ==
[2020-08-03 07:44] VITALS: BP 134/67; PULSE 75
--- NOTE | 2020-08-03 07:52 | EDM.PDOC ---
ED HPI GENERAL MEDICAL PROBLEM - General Chief Complaint: Abdominal Pain Stated Complaint: STOMACH PAIN Time Seen by Provider: 08/03/20 07:40 Source of Information: Reports: Patient, Old Records, RN, RN Notes Reviewed History Limitations: Reports: No Limitations - History of Present Illness INITIAL COMMENTS - FREE TEXT/NARRATIVE: Pt presents to ER with c/o an abdominal hernia that popped out has has become painful. Pt states that she had a hernia repair a year or two ago, and now at the top of the scar just to the right a new hernia has developed. Pt denies N/V, fever, or bowel habit changes. She did not have any problems with this new hernia until about two weeks ago. Duration: Week(s): (2), Intermittent Location: Reports: Abdomen Quality: Reports: Ache, Pressure Severity: Moderate Improves with: Reports: None Worsens with: Reports: None Associated Symptoms: Reports: No Other Symptoms - Related Data Allergies Allergy/AdvReac Type Severity Reaction Status Date / Time brompheniramine Allergy Cannot Verified 08/03/20 07:40 Remember dextromethorphan Allergy Cannot Verified 08/03/20 07:40 Remember phenylpropanolamine Allergy Cannot Verified 08/03/20 07:40 Remember sulfamethoxazole Allergy Cannot Verified 08/03/20 07:40 [From Bactrim] Remember trimethoprim [From Bactrim] Allergy Cannot Verified 08/03/20 07:40 Remember Home Meds: Home Meds Albuterol [Proventil HFA] 2 puff INH Q4H PRN 09/08/13 [History] Levothyroxine [Synthroid] 50 mcg PO ACBRK 09/08/13 [History] Verapamil [Covera-HS] 240 mg PO BEDTIME 09/08/13 [History] lisinopriL [Prinivil] 40 mg PO DAILY 09/08/13 [History] metFORMIN [metFORMIN XR] 1,000 mg PO BIDM PRN 09/08/13 [History] Aspirin [Low Dose Aspirin EC] 81 mg PO DAILY 03/31/14 [History] Calcium Carbonate/Vitamin D3 [Calcium 500 + Vit D 200 Tablet] 1 tab PO DAILY 03/31/14 [History] Diclofenac Sodium [Voltaren 1% Gel] 1 squirt TRDERM BEDTIME 03/31/14 [History] Formoterol/Mometasone [Dulera 100 MCG/5 MCG] 2 puff INH BID 03/31/14 [History] Multivit-Mins No.5/Folic Acid [Eldercaps] 1 tab PO DAILY 03/31/14 [History] hydroCHLOROthiazide [Hydrochlorothiazide] 25 mg PO DAILY 12/18/17 [History] Alendronate [Fosamax] 35 mg PO WEEKLY 10/08/18 [History] Folic Acid 1 mg PO DAILY 10/08/18 [History] Magnesium Oxide 400 mg PO DAILY 10/08/18 [History] Potassium Chloride 8 meq PO DAILY 10/08/18 [History] Ibuprofen 800 mg PO DAILY 06/18/19 [History] Past Medical History - Past Health History Medical/Surgical History: Denies Medical/Surgical History HEENT History: Reports: None Cardiovascular History: Reports: High Cholesterol, Hypertension Respiratory History: Reports: Asthma Gastrointestinal History: Reports: GERD Genitourinary History: Reports: None 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: , 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 Musculoskeletal History: Reports: Arthritis, Osteoporosis Neurological History: Reports: None Psychiatric History: Reports: None Endocrine/Metabolic History: Reports: Diabetes, Type II, Hypothyroidism, Obesity/BMI 30+, Osteoporosis Hematologic History: Reports: None Immunologic History: Reports: None Oncologic (Cancer) History: Reports: None Dermatologic History: Reports: None - Infectious Disease History Infectious Disease History: Reports: Measles - Past Surgical History Head Surgeries/Procedures: Reports: None HEENT Surgical History: Reports: Tonsillectomy Cardiovascular Surgical History: Reports: None Respiratory Surgical History: Reports: None GI Surgical History: Reports: Hernia Repair/Other Female Surgical History: Reports: Section, Tubal Ligation Endocrine Surgical History: Reports: None Neurological Surgical History: Reports: None Musculoskeletal Surgical History: Reports: Knee Replacement, Other (See Below) Other Musculoskeletal Surgeries/Procedures:: right bunion and hammer toe surgery 05/31/18 Oncologic Surgical History: Reports: None Dermatological Surgical History: Reports: None Social & Family History - Family History Family Medical History: No Pertinent Family History - Caffeine Use Caffeine Use: Reports: Coffee Other Caffeine Use: IN THE AM - Living Situation & Occupation Living situation: Reports: with Family ED ROS GENERAL - Review of Systems Review Of Systems: Comprehensive ROS is negative, except as noted in HPI. ED EXAM, GI/ABD - Physical Exam Exam: See Below Exam Limited By: No Limitations General Appearance: Alert, No Apparent Distress, Obese Eyes: Bilateral: Normal Appearance Throat/Mouth: Normal Inspection, Normal Voice, No Airway Compromise Respiratory/Chest: No Respiratory Distress, Lungs Clear Cardiovascular: Regular Rate, Rhythm GI/Abdominal Exam: Normal Bowel Sounds, Soft, No Distention, No Abnormal Bruit, Hernia (Infraumbilical hernia at the right side of the superior portion of an old midline vertical surgical scar, 6cm diameter, tender, but easily reducible with direct pressure.). No: Guarding, Rigid, Rebound (Female) Exam: Deferred Rectal (Female) Exam: Deferred Neurological: Alert, Oriented, No Motor/Sensory Deficits Psychiatric: Normal Mood Skin Exam: Warm, Dry, Intact, Normal Color, No Rash Course - Vital Signs Last Recorded V/S: Last Vital Signs Temp 97.1 F 08/03/20 07:40 Pulse 75 08/03/20 07:40 Resp 16 08/03/20 07:40 BP 134/67 08/03/20 07:40 Pulse Ox 94 L 08/03/20 07:40 - Re-Assessments/Exams Free Text/Narrative Re-Assessment/Exam: 08/03/20 07:52 Benign exam today with easily reducible ventral hernia. Pt will be referred to Dr. Kuhn for surgical consult. Departure - Departure Time of Disposition: 07:55 Disposition: Home, Self-Care 01 Condition: Good Clinical Impression: Ventral hernia Qualifiers: Obstruction and gangrene presence: without obstruction or gangrene Qualified Code(s): K43.9 - Ventral hernia without obstruction or gangrene - Discharge Information *PRESCRIPTION DRUG MONITORING PROGRAM REVIEWED*: Not Applicable *COPY OF PRESCRIPTION DRUG MONITORING REPORT IN PATIENT KIARA: Not Applicable Instructions: Ventral Hernia Additional Instructions: Call [phone] (after 8:30AM) to schedule an appointment with Dr. Kuhn for your hernia. Sepsis Event Note (ED) - Evaluation Sepsis Screening Result: No Definite Risk - Focused Exam Vital Signs: Vital Signs Temp Pulse Resp BP Pulse Ox 08/03/20 07:40 97.1 F 75 16 134/67 94 L
== END 2020-08-03 08:02 | disposition home or self-care (01) ==
LOC: DL.ED 07:39
DX: K43.9 Ventral hernia without obstruction or gangrene (principal); I10 Essential (primary) hypertension; J45.909 Unspecified asthma, uncomplicated; K21.9 Gastro-esophageal reflux disease without esophagitis; M19.90 Unspecified osteoarthritis, unspecified site; E11.9 Type 2 diabetes mellitus without complications; E03.9 Hypothyroidism, unspecified; E66.9 Obesity, unspecified; Z68.41 Body mass index [BMI] 40.0-44.9, adult; Z88.8 Allergy status to other drugs, medicaments and biological substances; Z88.2 Allergy status to sulfonamides; Z88.1 Allergy status to other antibiotic agents; Z79.82 Long term (current) use of aspirin; Z79.899 Other long term (current) drug therapy
CPT/HCPCS: 99283

== ENCOUNTER 2020-08-22 14:53 | Emergency (ER) | payer MEDICARE, MEDICAID ==
[2020-08-22] MEDS ORDERED: Clindamycin HCl 150 MG Cap PO ONE ×2 (14:54→18:15)
[2020-08-22 15:20] VITALS: BP 126/54; PULSE 76
--- NOTE | 2020-08-22 15:30 | EDM.PDOC ---
ED HPI GENERAL MEDICAL PROBLEM - General Chief Complaint: Wound Recheck Stated Complaint: PRIOR SURGERY 2 WEEKS STILL HURTING Time Seen by Provider: 08/22/20 15:20 Source of Information: Reports: Patient History Limitations: Reports: No Limitations - History of Present Illness INITIAL COMMENTS - FREE TEXT/NARRATIVE: This 69 yo female patient reports to the ED due to increased pain and drainage from her abdominal surgical wound. The patient reports she had a ventral hernia repair 2 weeks ago and has noticed swelling, pain and drainage for the past 2 days. The patient has not had a follow-up with her primary care facility, but is scheduled for a follow-up in 2 days. The patient reports she started to get more concerned when the drainage increased. Duration: Day(s):, Constant, Getting Worse Location: Reports: Abdomen Quality: Reports: Other Severity: Mild Improves with: Reports: None Worsens with: Reports: None Context: Reports: Other Associated Symptoms: Reports: No Other Symptoms Right Abdomen Pain Score (Numeric/FACES): 10 - Related Data Allergies Allergy/AdvReac Type Severity Reaction Status Date / Time brompheniramine Allergy Cannot Verified 08/22/20 15:16 Remember dextromethorphan Allergy Cannot Verified 08/22/20 15:16 Remember phenylpropanolamine Allergy Cannot Verified 08/22/20 15:16 Remember sulfamethoxazole Allergy Cannot Verified 08/22/20 15:16 [From Bactrim] Remember trimethoprim [From Bactrim] Allergy Cannot Verified 08/22/20 15:16 Remember Home Meds: Home Meds Albuterol [Proventil HFA] 2 puff INH Q4H PRN 09/08/13 [History] Levothyroxine [Synthroid] 50 mcg PO ACBRK 09/08/13 [History] Verapamil [Covera-HS] 240 mg PO BEDTIME 09/08/13 [History] lisinopriL [Prinivil] 40 mg PO DAILY 09/08/13 [History] metFORMIN [metFORMIN XR] 1,000 mg PO BIDM PRN 09/08/13 [History] Aspirin [Low Dose Aspirin EC] 81 mg PO DAILY 03/31/14 [History] Calcium Carbonate/Vitamin D3 [Calcium 500 + Vit D 200 Tablet] 1 tab PO DAILY 03/31/14 [History] Diclofenac Sodium [Voltaren 1% Gel] 1 squirt TRDERM BEDTIME 03/31/14 [History] Formoterol/Mometasone [Dulera 100 MCG/5 MCG] 2 puff INH BID 03/31/14 [History] Multivit-Mins No.5/Folic Acid [Eldercaps] 1 tab PO DAILY 03/31/14 [History] hydroCHLOROthiazide [Hydrochlorothiazide] 25 mg PO DAILY 12/18/17 [History] Alendronate [Fosamax] 35 mg PO WEEKLY 10/08/18 [History] Folic Acid 1 mg PO DAILY 10/08/18 [History] Magnesium Oxide 400 mg PO DAILY 10/08/18 [History] Potassium Chloride 8 meq PO DAILY 10/08/18 [History] Ibuprofen 800 mg PO DAILY 06/18/19 [History] Past Medical History - Past Health History Medical/Surgical History: Denies Medical/Surgical History HEENT History: Reports: None Cardiovascular History: Reports: High Cholesterol, Hypertension Respiratory History: Reports: Asthma Gastrointestinal History: Reports: GERD, Hiatal Hernia Genitourinary History: Reports: None [employer] History: Reports: , Other (See Below) Other [employer] CANDLES History: tubal Musculoskeletal History: Reports: Arthritis, Osteoporosis Neurological History: Reports: None Psychiatric History: Reports: None Endocrine/Metabolic History: Reports: Diabetes, Type II, Hypothyroidism, Obesity/BMI 30+, Osteoporosis Hematologic History: Reports: None Immunologic History: Reports: None Oncologic (Cancer) History: Reports: None Dermatologic History: Reports: None - Infectious Disease History Infectious Disease History: Reports: Measles - Past Surgical History Head Surgeries/Procedures: Reports: None HEENT Surgical History: Reports: Tonsillectomy Cardiovascular Surgical History: Reports: None Respiratory Surgical History: Reports: None GI Surgical History: Reports: Hernia Repair/Other Female Surgical History: Reports: Section, Tubal Ligation Endocrine Surgical History: Reports: None Neurological Surgical History: Reports: None Musculoskeletal Surgical History: Reports: Knee Replacement, Other (See Below) Other Musculoskeletal Surgeries/Procedures:: right bunion and hammer toe surgery 05/31/18 Oncologic Surgical History: Reports: None Dermatological Surgical History: Reports: None Social & Family History - Family History Family Medical History: No Pertinent Family History Cardiac: Reports: None Respiratory: Reports: None GI: Reports: None : Reports: None OBGYN: Reports: None Musculoskeletal: Reports: None Endocrine/Metabolic: Reports: Diabetes, Type I, Diabetes, type II - Caffeine Use Caffeine Use: Reports: None - Living Situation & Occupation Living situation: Reports: with Family ED ROS GENERAL - Review of Systems Review Of Systems: Comprehensive ROS is negative, except as noted in HPI. ED EXAM, SKIN/RASH Exam: See Below Exam Limited By: No Limitations General Appearance: Alert, WD/WN, Mild Distress, Obese Eye Exam: Bilateral Eye: EOMI, Normal Inspection, PERRL Ears: Normal External Exam, Normal Canal, Hearing Grossly Normal, Normal TMs Nose: Normal Inspection, Normal Mucosa, No Blood Throat/Mouth: Normal Inspection, Normal Lips, Normal Teeth, Normal Gums, Normal Oropharynx, Normal Voice, No Airway Compromise Head: Atraumatic, Normocephalic Neck: Normal Inspection, Supple, Non-Tender, Full Range of Motion Respiratory/Chest: No Respiratory Distress, Lungs Clear, Normal Breath Sounds, No Accessory Muscle Use, Chest Non-Tender Cardiovascular: Normal Peripheral Pulses, Regular Rate, Rhythm, No Edema, No Gallop, No JVD, No Murmur, No Rub GI/Abdominal: Normal Bowel Sounds, Soft, No Organomegaly, No Distention, No Abnormal Bruit, No Mass, Tender (surrounding surgical site) (Female) Exam: Deferred Rectal (Female) Exam: Deferred Back Exam: Normal Inspection, Full Range of Motion, NT Extremities: Normal Inspection, Normal Range of Motion, Non-Tender, No Pedal Edema, Normal Capillary Refill Psychiatric: Normal Affect, Normal Mood Skin: Wound/Incision (Surgical wound with areas of purulent drainage) Location, Skin: Abdomen Characteristics: Other Associated features: Tenderness, Inflammation, Weeping. No: Swelling, Induration Lymphatic: No Adenopathy Course - Vital Signs Last Recorded V/S: Last Vital Signs Temp 36.3 C 08/22/20 15:17 Pulse 76 08/22/20 15:17 Resp 16 08/22/20 15:17 BP 126/54 L 08/22/20 15:17 Pulse Ox 97 08/22/20 15:17 - Orders/Labs/Meds Orders: Active Orders 24 hr Category Date Time Status CULTURE BLOOD [BC] Stat Lab 08/22/20 15:58 Received CULTURE WOUND [RM] Stat Lab 08/22/20 15:15 Received Labs: Laboratory Tests 08/22/20 08/22/20 08/22/20 Range/Units 15:58 15:58 15:58 WBC 7.3 (5.0-10.0) 10^3/uL RBC 3.59 L (4.2-5.4) 10^6/uL Hgb 10.2 L (12.0-16.0) g/dL Hct 31.7 L (37.0-47.0) % MCV 88.3 (80-100) fL MCH 28.4 (27.0-34.0) pg MCHC 32.2 L (33.0-35.0) g/dL Plt Count 256 (150-450) 10^3/uL Neut % (Auto) 71.7 (42.2-75.2) % Lymph % (Auto) 19.3 L (20.5-50.1) % [place] % (Auto) 5.5 (2-8) % Eos % (Auto) 3.1 H (1.0-3.0) % Baso % (Auto) 0.4 (0.0-1.0) % Sodium 147 H (136-145) mmol/L Potassium 3.9 (3.5-5.1) mmol/L Chloride 109 H (98-107) mmol/L Carbon Dioxide 24 (21-32) mmol/L Anion Gap 17.9 H (7-13) mEq/L BUN 28 H (7-18) mg/dL Creatinine 1.07 H (0.55-1.02) mg/dL Est Cr Clr Drug Dosing 50.06 mL/min Estimated GFR (MDRD) 51 BUN/Creatinine Ratio 26.2 (No establ ref range) Glucose 144 H (74-99) mg/dL Lactic Acid 1.8 (0.4-2.0) mmol/L Calcium 9.0 (8.5-10.1) mg/dL Total Bilirubin 0.5 (0.2-1.0) mg/dL AST 6 L (15-37) U/L ALT 15 (14-59) U/L Alkaline Phosphatase 124 H (46-116) U/L Total Protein 6.9 (6.4-8.2) g/dL Albumin 3.1 L (3.4-5.0) g/dL Globulin 3.8 Albumin/Globulin Ratio 0.82 Meds: Medications Discontinued Medications Generic Name Dose Route Start Last Admin Trade Name Freq PRN Reason Stop Dose Admin Clindamycin HCl 300 mg 08/22/20 18:15 Clindamycin Hcl 150 Mg Cap PO 08/22/20 18:16 ONETIME ONE Iopamidol 100 ml 08/22/20 16:39 Iopamidol 612 Mg/Ml 100 Ml Bottle IVPUSH 08/22/20 16:40 ONETIME ONE Departure - Departure Time of Disposition: 18:18 Disposition: Home, Self-Care 01 Condition: Fair Clinical Impression: Wound, surgical, infected - Discharge Information *PRESCRIPTION DRUG MONITORING PROGRAM REVIEWED*: Not Applicable *COPY OF PRESCRIPTION DRUG MONITORING REPORT IN PATIENT KIARA: Not Applicable Instructions: Wound Infection, [id number] Forms: ED Department Discharge Care Plan Goals: The patient was advised of the examination, lab and CT results during the visit. The patient was given an oral dose of Clindamycin (300 mg) while in the ED. The patient was discharged with Clindamycin (150 mg) #2 to take 2 at bedtime and a script for Clindamycin (300 mg) #40 to take 1 by mouth 4 times per day for 10 days. If the patient has any additional symptoms or concerns, the patient should either return to the emergency department or visit her primary care facility. Sepsis Event Note (ED) - Evaluation Sepsis Screening Result: No Definite Risk - Focused Exam Vital Signs: Vital Signs Temp Pulse Resp BP Pulse Ox 08/22/20 15:17 36.3 C 76 16 126/54 L 97 - My Orders Last 24 Hours: My Active Orders 08/22/20 15:15 CULTURE WOUND [RM] Stat 08/22/20 15:58 CULTURE BLOOD [BC] Stat - Assessment/Plan Last 24 Hours: My Active Orders 08/22/20 15:15 CULTURE WOUND [RM] Stat 08/22/20 15:58 CULTURE BLOOD [BC] Stat
[2020-08-22 16:29] LABS: ANION GAP 17.9 mEq/L (7-13)
[2020-08-22] MEDS ORDERED: Iopamidol 612 MG/ML 100 ML Bottle IVPUSH ONE (16:39)
--- NOTE | 2020-08-22 17:48 | CT ---
PROCEDURE INFORMATION: Exam: CT Abdomen And Pelvis With Contrast Exam date and time: 08/22/2020 5:27 PM Age: 69 years old Clinical indication: Other: Drainage after ventral hernia surgery; Prior surgery; Surgery date: <1 month; Additional info: Abdominal pain, drainage TECHNIQUE: Imaging protocol: Computed tomography of the abdomen and pelvis with contrast. Radiation optimization: All CT scans at this facility use at least one of these dose optimization techniques: automated exposure control; mA and/or kV adjustment per patient size (includes targeted exams where dose is matched to clinical indication); or iterative reconstruction. Contrast material: [id number]; Contrast volume: 100 ml; Contrast route: INTRAVENOUS (IV); COMPARISON: CT Abdomen Pelvis wo Cont 11/13/2019 10:58 PM FINDINGS: Liver: Normal. No mass. Gallbladder and bile ducts: Multiple prominent calcified gallstones. Pancreas: Normal. No ductal dilation. Spleen: Normal. No splenomegaly. Adrenal glands: Normal. No mass. Kidneys and ureters: Normal. No hydronephrosis. Stomach and bowel: Unremarkable. No obstruction. No mucosal thickening. Appendix: No evidence of appendicitis. Intraperitoneal space: Unremarkable. No free air. No significant fluid collection. Vasculature: Unremarkable. No abdominal aortic aneurysm. Lymph nodes: Unremarkable. No enlarged lymph nodes. Urinary bladder: Unremarkable as visualized. Reproductive: Unremarkable as visualized. Bones/joints: Unremarkable. No acute fracture. Soft tissues: Unremarkable. IMPRESSION: Cholelithiasis.
[2020-08-22] MEDS ORDERED: Clindamycin HCl 150 MG Cap ONE (18:23)
== END 2020-08-22 18:31 | disposition home or self-care (01) ==
LOC: DL.ED 14:53
DX: T81.41XA Infection following a procedure, superficial incisional surgical site, initial encounter (principal); E11.9 Type 2 diabetes mellitus without complications; E66.9 Obesity, unspecified; E03.9 Hypothyroidism, unspecified; I10 Essential (primary) hypertension; Z68.38 Body mass index [BMI] 38.0-38.9, adult; Z79.82 Long term (current) use of aspirin; Z79.84 Long term (current) use of oral hypoglycemic drugs; Z79.899 Other long term (current) drug therapy; Z88.1 Allergy status to other antibiotic agents; Z88.2 Allergy status to sulfonamides; Z88.8 Allergy status to other drugs, medicaments and biological substances
CPT/HCPCS: 36415; 74177; 80053; 83605; 85025; 87040; 87070; 87077; 87186; 99283; 99284; A9270; Q9967

== ENCOUNTER 2023-09-02 12:01 | Emergency (ER) | payer MEDICARE, MEDICAID ==
[2023-09-02 12:27] VITALS: BP 172/93; PULSE 94
[2023-09-02] MEDS: diphenhydrAMINE 50 MG/ML SDV IVPUSH ONE (12:33)
[2023-09-02] MEDS: Sodium Chloride 0.9% 1,000 ML IV ONE (12:33)
[2023-09-02] MEDS: Mupirocin Oint 22 GM Tube TOP ONE (12:34)
[2023-09-02 12:37] LABS: BASOPHILS PERCENT AUTO 0.1 % (0.0-1.0); EOSINOPHILS PERCENT AUTO 1.7 % (1.0-3.0); HEMATOCRIT 38.3 % (37.0-47.0); HEMOGLOBIN 12.2 g/dL (12.0-16.0); LYMPHOCYTES PERCENT AUTO 21.2 % (20.5-50.1); MEAN CORPUSCULAR HEMOGLOBIN 28.8 pg (27.0-34.0); MEAN CORPUSCULAR HGB CONC 31.9 g/dL (33.0-35.0); MEAN CORPUSCULAR VOLUME 90.3 fL (80-100); PLATELET COUNT,PLT 238 10^3/uL (150-450); RED BLOOD CELL COUNT 4.24 10^6/uL (4.2-5.4); WHITE BLOOD CELL COUNT,WBC 7.8 10^3/uL (5.0-10.0)
[2023-09-02] MEDS: Sodium Chloride 0.9% 10 ML Syringe FLUSH PRN (12:38)
[2023-09-02 12:52] LABS: ANION GAP 11.2 mEq/L (7-13); C-REACTIVE PROTEIN 0.87 ng/dL (<=0.50); CALCIUM 8.7 mg/dL (8.5-10.1); CREATININE 0.92 mg/dL (0.55-1.02); EST CRCL DRUG DOSING (CG) 49.01 mL/min; POTASSIUM,K 4.2 mmol/L (3.5-5.1)
[2023-09-02 12:59] LABS: LACTIC ACID 1.2 mmol/L (0.4-2.0)
[2023-09-02] MEDS: Take Home: Clindamycin HCl 150 MG, 12 Cap Pack PO ONE (14:22)
[2023-09-02] MEDS: Take Home: Doxycycline 100 MG Cap, 4 Cap Pack PO ONE (14:22)
== END 2023-09-02 14:40 | disposition home or self-care (01) ==
LOC: DL.ED 12:01
DX: L03.011 Cellulitis of right finger (principal); I10 Essential (primary) hypertension; E78.00 Pure hypercholesterolemia, unspecified; J45.909 Unspecified asthma, uncomplicated; K21.9 Gastro-esophageal reflux disease without esophagitis; E11.9 Type 2 diabetes mellitus without complications; E03.9 Hypothyroidism, unspecified; Z79.84 Long term (current) use of oral hypoglycemic drugs; Z79.899 Other long term (current) drug therapy; Z88.8 Allergy status to other drugs, medicaments and biological substances; Z88.2 Allergy status to sulfonamides
CPT/HCPCS: 36415; 80048; 83605; 85025; 86140; 87040; 87070; 87077; 87186; 96365; 96366; 96375; 99283; 99284; A9270; J1200; J3370; J7030; J7050; J3490

== ENCOUNTER 2024-05-30 05:50 | Day surgery (SDC) | payer MEDICARE, MEDICAID ==
[~2024-05-30 05:50] MED LIST changes: +Dextrose 5%-0.45% NaCl 1,000 ML IV SCH; -Lactated Ringers 1,000 ML IV SCH; -Sodium Chloride 0.9% 10 ML Syringe FLUSH PRN
[2024-05-30] MEDS ORDERED: Midazolam 1 MG/ML 2 ML SDV IV ONE (06:16)
[2024-05-30] MEDS ORDERED: fentaNYL 100 MCG/2 ML SDV ONE (06:16)
[2024-05-30] MEDS ORDERED: fentaNYL 100 MCG/2 ML SDV IV ONE (06:16)
[2024-05-30] MEDS ORDERED: Midazolam 1 MG/ML 2 ML SDV ONE (06:16)
[2024-05-30] MEDS: Dextrose 5%-0.45% NaCl 1,000 ML IV SCH (06:25)
[2024-05-30] MEDS: fentaNYL 100 MCG/2 ML SDV IV ONE ×6 (06:55→07:15)
[2024-05-30] MEDS: Midazolam 1 MG/ML 2 ML SDV IV ONE ×10 (06:56→07:23)
[2024-05-30 08:28] VITALS: BP 132/62; PULSE 65
== END 2024-05-30 08:38 | disposition home or self-care (01) ==
LOC: DL.ENDO 05:50
PROVIDERS: ATTEND Internal Medicine Gastroenterology
DX: Z12.11 Encounter for screening for malignant neoplasm of colon (principal); K57.30 Diverticulosis of large intestine without perforation or abscess without bleeding
CPT/HCPCS: G0121; J2250; J3010; J7799